=== PATIENT | male | born 1950 | race Caucasian/White ===

== ENCOUNTER 2018-04-24 09:12 | Inpatient (IN) | payer OTHER, MEDICARE ==
--- NOTE | 2018-04-20 12:02 | Diagnostic Imaging Report ---
EXAMINATION: CHEST 2 VIEWS INDICATION: \S\PRE-OP \[id number] \S\1145 COMPARISON: None FINDINGS: PA and lateral views TUBES and LINES: None. LUNGS: The lungs are hyperinflated. Minimal atelectasis in both lung bases. There is no evidence of pneumonia or pulmonary edema. PLEURA: No pleural effusion or pneumothorax. HEART AND MEDIASTINUM: The cardiomediastinal silhouette is unremarkable. BONES AND SOFT TISSUES: Minimal decreasing height of a lower thoracic vertebral body likely degenerative. Mild multilevel degenerative changes of the thoracic spine. Soft tissues are unremarkable. UPPER ABDOMEN: No free air under the diaphragm. IMPRESSION: No acute thoracic abnormality. Minimal atelectasis in both lung bases. Signed by: Dr. Khadijah Castro M.D. on 04/20/2018 11:59 AM
[2018-04-23 10:00] LABS: BASOPHILS # (AUTO) 0.1 (0.0-0.1); BASOPHILS % 0.8 % (0.0-1.0); EOSINOPHILS # (AUTO) 0.2 (0.0-0.4); EOSINOPHILS % 2.7 % (0.0-6.0); HEMATOCRIT 42.3 % (38.2-49.6); HEMOGLOBIN 14.6 g/dL (14.0-18.0); LYMPHOCYTES # (AUTO) 1.4 (1.0-3.2); LYMPHOCYTES % 22.1 % (18.0-39.1); MEAN CORPUSCULAR HEMOGLOBIN 31.6 pg (28-32); MEAN CORPUSCULAR HGB CONC 34.5 g/dL (31-35); MEAN CORPUSCULAR VOLUME 91.6 fL (81-99); MONOCYTES # (AUTO) 0.6 (0.2-0.8); MONOCYTES % 9.6 % (4.4-11.3); NEUTROPHILS % 64.3 % (38.7-80.0); PLATELET COUNT 174 x10e3/uL (140-360); RED BLOOD COUNT 4.62 x10e6/uL (4.3-5.7); RED CELL DISTRIBUTION WIDTH 12.3 % (11.7-14.4)
[2018-04-23 10:14] LABS: ANION GAP 12.5 mmol/L (8-16); BLOOD UREA NITROGEN 20 mg/dL (7-26); BUN/CREATININE RATIO 17 (6-25); CALCIUM 10.1 mg/dL (8.4-10.2); CARBON DIOXIDE 27 mmol/L (22-29); CHLORIDE 106 mmol/L (98-107); CREATININE, SERUM 1.19 mg/dL (0.72-1.25); EST GLOMERULAR FILTRATION RATE > 60 ML/MIN (60-); GLUCOSE 148 mg/dL (74-118); POTASSIUM 4.5 mmol/L (3.5-5.1); SODIUM 141 mmol/L (136-145)
[~2018-04-24] VITALS: Ht 160 cm; Wt 102.1 kg
[~2018-04-24 09:12] MED LIST: AMLODIPINE BESY10 MG PO; ASPIRIN81 M1 PO; CALCIUM MG ZINC PO; CARVEDILOL12.5 MG PO; CO Q-10400 MG PO; CRESTOR10 MG PO; DIPHENHYDRAMINE25 MG PO; DOXAZOSIN MESYLA2 MG PO; GLUCOSAMINE1000 MG PO; KRILL OIL500 MG PO; LISINOPRIL-HCT1 EACH; LOSARTAN-HCTZ1 EAC1 PO; MELOXICAM15 MG PO; NAPROXEN SODIU220 MG PO; POTASSIUM CHLO10 ME1 PO; VITAMIN D33000 UNIT PO
[2018-04-24] MEDS ORDERED: CEFAZOLIN SOD 2 GM/D5W 50ML 50 ML IV ONE (09:27)
[2018-04-24 09:52] LABS: CLARITY,URINE CLEAR (CLEAR); COLOR,URINE YELLOW (YELLOW); KETONES,URINE NEGATIVE (NEGATIVE); LEUKOCYTE ESTERASE ,URINE NEGATIVE (NEGATIVE); NITRITE,URINE NEGATIVE (NEGATIVE); PROTEIN,URINE DIPSTICK NEGATIVE (NEGATIVE)
[2018-04-24 09:53] LABS: BILIRUBIN,URINE NEGATIVE (NEGATIVE); URINE UROBILINOGEN 0.2 mg/dL (0.2 - 1)
[2018-04-24] MEDS ORDERED: BACITRACIN 50,000 UNIT VIAL ONE (11:27)
[2018-04-24] MEDS ORDERED: DEXAMETHASONE SOD PHOS INJ 4 MG/ML VIAL ONE (17:41)
[2018-04-24] MEDS ORDERED: VASOPRESSIN INJ 20 UNIT/ML VIAL ONE (17:41)
[2018-04-24] MEDS ORDERED: SEVOFLURANE INHAL SOLN 250 ML PEN BTL ONE (17:41)
[2018-04-24] MEDS ORDERED: PROPOFOL IV EMULSION 10 MG/ML 20 ML VIAL ONE (17:41)
[2018-04-24] MEDS ORDERED: ACETAMINOPHEN 1000 MG/100 ML IV ONE (17:41)
[2018-04-24] MEDS ORDERED: ONDANSETRON HCL INJ 2 MG/ML VIAL ONE (17:41)
[2018-04-24] MEDS ORDERED: LIDOCAINE HCL 2% LOCAL INJ 5 ML SDV VIAL INJ ONE (17:41)
[2018-04-24] MEDS ORDERED: EPHEDRINE SULFATE INJ 50 MG/10 ML SYR ONE (17:41)
[2018-04-24] MEDS ORDERED: PHENYLEPHRINE HCL 1% 10 MG/ML VIAL ONE (17:41)
[2018-04-24] MEDS ORDERED: KETAMINE HCL INJ 50 MG/ML 10 ML VIAL ONE (17:45)
[2018-04-24] MEDS ORDERED: FENTANYL CITRATE/PF 100MCG/2 ML INJ ONE (17:45)
[2018-04-24] MEDS ORDERED: MORPHINE SULFATE INJ 10 MG/ML ONE (17:45)
[2018-04-24] MEDS ORDERED: MIDAZOLAM HCL 2 MG/2 ML VIAL ONE (17:45)
[2018-04-24] MEDS ORDERED: NALOXONE HCL INJ 0.4 MG/ML AMP IV PRN (18:30)
[2018-04-24] MEDS ORDERED: HYDROMORPHONE 0.2MG/ML-SOD CHL 30ML PCA SYRINGE IV PRN (18:30)
[2018-04-24] MEDS ORDERED: ALBUTEROL SULF 0.083% NEB SOLN 3 ML NEB ONE (18:50)
[2018-04-24] MEDS ORDERED: LIDOCAINE 2%/ EPINEPHRINE 20ML MDV ONE (18:51)
[2018-04-24] MEDS ORDERED: ROPIVACAINE 0.5% 5 MG/ML 30 ML SDV ONE (18:51)
--- NOTE | 2018-04-24 19:09 | Operative Report ---
DATE OF PROCEDURE: April 24, 2018 PREOPERATIVE DIAGNOSIS: End-stage arthritis left knee. POSTOPERATIVE DIAGNOSIS: End-stage arthritis left knee. PROCEDURE PERFORMED: Patient underwent a left total knee arthroplasty with a Serge Flex knee system with a size F femoral component, a size 6 tibial component, a 17 mm tibial insert and a 41 mm patella button. MILLING MACHINE SET UP OPERATOR: None. ANESTHESIA: General endotracheal intubation anesthesia. INTRAVENOUS FLUIDS: As per the anesthesia record. OPERATIVE PROCEDURE IN DETAIL: Mr. Mcallister was taken to the operating room and placed in the supine position on the operating table. Following the induction of general anesthesia as well as endotracheal intubation, the patient's left lower extremity was examined under anesthesia. He was found to have a varus knee that was ligamentously stable. The patient's lower extremity was prepped and draped in standard surgical fashion. The case was begun by creating an incision centered over the knee joint along the long axis of the leg. This incision was carried through the skin only. Blunt dissection was used to deepen the incision to the level of the extensor mechanism. Full-thickness soft-tissue flaps were then elevated medially and laterally to expose the extensor mechanism. The quadriceps tendon was then incised along its medial border to the level of the tibial tubercle. The patella was everted laterally, and osteophytes were removed from the femur, tibia and patella. The patella was measured for later reaming. The anterior horns of the medial and lateral menisci were resected. The anterior-posterior cruciate ligaments were also resected at this time. The knee was placed in flexion, and the 5-in-1 cutting block was affixed to the femur. The femoral cuts were performed. The intercondylar notch-cutting block was then affixed to the femur, and the intercondylar notch cut was performed. The finishing block was then affixed to the femur, and the posterior chamfer cut was performed. The external tibial alignment guide was then affixed to the tibia and adjusted appropriately. The tibial cut was performed. The keel-cutting device was then affixed to the proximal tibia, and the keel cut was performed. Trial femoral and tibial components were placed within the knee joint. The soft tissues were balanced. A tibial insert was placed within the knee, and the knee was placed through a range of motion and found to be stable. The patella was then reamed, and a trial patellar button was placed in the undersurface of the patella. The patellofemoral joint was reduced and placed through motion and found to be stable. All trial components were removed. Cement was mixed on the back table. The bone was prepared for cementation. The femoral, tibial and patellar components were cemented into place. The knee was reduced and placed through motion again and found to be stable. The wound was copiously irrigated. The tourniquet was deflated, and hemostasis was obtained prior to closing the wound. The quadriceps mechanism was repaired with a nonabsorbable suture in a figure-of-8 fashion. The remaining soft tissues were closed in a multi-layer fashion. Sterile dressings were applied, and the patient was then awakened and taken to the postanesthesia care unit in stable condition. Job#: [id number] EV
[2018-04-24] MEDS ORDERED: MEPERIDINE HCL INJ 50 MG/ML INJ ONE (19:17)
[2018-04-24] MEDS ORDERED: HYDROMORPHONE 0.2MG/ML-SOD CHL 30ML PCA SYRINGE IV ONE (19:18)
--- NOTE | 2018-04-24 19:50 | Diagnostic Imaging Report ---
LEFT KNEE X-RAY - 2 VIEWS HISTORY: \S\post op \S\[id number] \S\1900 \S\n COMPARISON: None available. FINDINGS: Bones: Status post total knee arthroplasty. Hardware appears intact without loosening. Increased sclerosis of the patella. Osseous alignment is within normal limits. Joints: The joint spaces are well-maintained. Soft tissues: Air-fluid level within the suprapatellar and infrapatellar region, likely postoperative hematoma. Terese overlying the skin of the anterior knee. IMPRESSION: Left knee total arthroplasty. Hardware appears intact and in good alignment. Signed by: Dr. Khadijah Castro M.D. on 04/24/2018 7:46 PM
[2018-04-24 20:15] VITALS: BP 125/69
[2018-04-24] MEDS ORDERED: CEFAZOLIN SOD 1 GM/D5W 50ML 50 ML IV SCH (22:00)
[2018-04-24] MEDS: CEFAZOLIN SOD 1 GM VIAL IV SCH (22:13)
[2018-04-24] MEDS: SODIUM CHLORIDE 0.9% 1000ML 1,000 ML IV SCH (22:13)
[2018-04-24 23:28] VITALS: BP 125/69
[2018-04-24] MEDS: ACETAMINOPHEN 1000 MG/100 ML IV SCH (23:42)
[2018-04-25] VITALS (8 sets, daily range): BP systolic 124–165; BP diastolic 61–73
[2018-04-25] MEDS: ACETAMINOPHEN 1000 MG/100 ML IV SCH ×3 (05:28→17:42)
[2018-04-25] MEDS: CEFAZOLIN SOD 1 GM VIAL IV SCH ×2 (05:28→14:09)
[2018-04-25 05:31] LABS: HEMATOCRIT 35.2 % (38.2-49.6); HEMOGLOBIN 12.3 g/dL (14.0-18.0)
[2018-04-25] MEDS ORDERED: ONDANSETRON HCL INJ 2 MG/ML VIAL IV PRN (08:30)
[2018-04-25] MEDS: SODIUM CHLORIDE 0.9% 1000ML 1,000 ML IV SCH ×2 (10:22→14:22)
[2018-04-25] MEDS ORDERED: KETOROLAC TROMETHAMINE 30 MG/ML VIAL IV PRN (16:45)
[2018-04-25] MEDS: RIVAROXABAN 10 MG TABLET PO SCH (16:57)
[2018-04-25] MEDS: POTASSIUM CHLORIDE 10 MEQ TABCR PO SCH (16:59)
[2018-04-25] MEDS: CARVEDILOL 12.5 MG TAB PO SCH (16:59)
[2018-04-25] MEDS ORDERED: SIMVASTATIN 40 MG TAB PO SCH (21:00)
[2018-04-25] MEDS ORDERED: DOXAZOSIN MESYLATE 2 MG TAB PO SCH (21:00)
[2018-04-25] MEDS ORDERED: SIMVASTATIN 20 MG TAB PO SCH (21:00)
[2018-04-25] MEDS ORDERED: AMLODIPINE BESYLATE 10 MG TAB PO SCH (21:00)
[2018-04-26] VITALS: BP 139/66
[2018-04-26 04:00] VITALS: BP 134/60
[2018-04-26 05:41] LABS: HEMATOCRIT 29.8 % (38.2-49.6); HEMOGLOBIN 10.4 g/dL (14.0-18.0)
[2018-04-26 07:35] VITALS: BP 133/63
[2018-04-26 08:28] VITALS: BP 133/63
[2018-04-26] MEDS ORDERED: LOSARTAN POTASSIUM 100 MG TAB PO SCH (09:00)
[2018-04-26] MEDS ORDERED: HYDROCHLOROTHIAZIDE 25 MG TAB PO SCH (09:00)
[2018-04-26] MEDS ORDERED: NON-FORMULARY MEDICATION (Losartan/Hydrochlorothiazide (Losartan-Hctz 100-25 Mg Tab) 1 TAB PO SCH (09:00)
[2018-04-26] MEDS: CARVEDILOL 12.5 MG TAB PO SCH ×2 (09:34→17:19)
[2018-04-26] MEDS: POTASSIUM CHLORIDE 10 MEQ TABCR PO SCH ×2 (09:34→17:19)
[2018-04-26 11:42] VITALS: BP 132/61
[2018-04-26] MEDS: HYDROCODONE/APAP 5MG-325MG TAB PO PRN ×2 (13:15→17:15)
[2018-04-26 15:57] VITALS: BP 160/73
[2018-04-26] MEDS: RIVAROXABAN 10 MG TABLET PO SCH (17:19)
[2018-04-26] MEDS ORDERED: NORCO 5-325 TA1 EACH PO (18:29)
--- NOTE | 2018-05-03 17:53 | Discharge Summary ---
Patient had his procedure placed on the March,. PREOPERATIVE DIAGNOSIS: End-stage arthritis left knee. DISCHARGE DIAGNOSIS: End-stage arthritis left knee. OPERATION/PROCEDURES PERFORMED: The patient underwent a left total knee arthroplasty on the March,. Consultations were with the physical therapy department. BRIEF DESCRIPTION OF THE PATIENT'S HOSPITAL STAY: Mr. Mcallister was admitted to the hospital on the March,, and underwent an uncomplicated left total knee arthroplasty. He was returned to the floor immediately following this surgical procedure. His initial postoperative pain was controlled by IV pain medications. He was provided postoperative antibiotics following his surgery. He was mobilized with physical therapy, weightbearing as tolerated on this left lower extremity. He tolerated his diet immediately following his surgery. He did have difficulty, however, with pain control requiring extension of his hospital stay to allow for further pain management. On his second postoperative day his pain was under much better control and he was easily converted to oral analgesics. At this time he was deemed a candidate for discharge home with home health services. He had ambulated sufficiently in the hospital as well as been taught how to manage stairs prior to his discharge. At the time of his discharge he was in stable condition. The patient's discharge instructions are to be discharged with weightbearing as tolerated on the left lower extremity. He will continue his normal diet as well as all of his previous medications. He was provided prescriptions for discharge durable medical equipment for home use as well as home health services. He was also provided prescriptions for pain medicines as well as DVT prophylaxis. He would contact the office with fevers greater than 101.5 that were sustained, excessive drainage from his wounds, or intractable pain. Job#: [id number] EV
== END 2018-04-26 18:53 | disposition home health service (06) | DRG 470 ==
LOC: OR 09:12 → PACU V 18:26 → OBSVTOIN 18:26 → OR 21:37 → MED/SURG 21:37 → OBSVTOIN 04-26 15:53 → INTOOBSV 04-26 15:53
PROVIDERS: ADMIT Specialist; ATTEND Specialist
PROC: 0SRD0J9 Replacement of Left Knee Joint with Synthetic Substitute, Cemented, Open Approach (ICD-10-PCS; principal; 2018-04-24 15:21)
DX: M17.0 Bilateral primary osteoarthritis of knee (principal); I10 Essential (primary) hypertension; E78.5 Hyperlipidemia, unspecified
CPT/HCPCS: 36415; 71046; 80048; 81003; 82948; 85014; 85018; 85025; 86850; 86900; 86920; 97139; C1713; C1776; G0378; J0690; J1100; J1885; J2001; J2175; J2250; J2270; J2370; J2405; J2795; J7030

== ENCOUNTER 2018-05-25 14:55 | Outpatient (RCR) | payer OTHER, MEDICARE ==
[~2018-05-25 14:55] MED LIST changes: +NORCO 5-325 TA1 EACH PO
== END 2018-05-27 ==
LOC: PT 14:55
PROVIDERS: ATTEND Specialist
DX: Z96.652 Presence of left artificial knee joint (principal); Z47.1 Aftercare following joint replacement surgery

== ENCOUNTER → 2018-06-27 | Outpatient (RCR) | payer MEDICARE, OTHER ==
[~2018-06-27] MED LIST changes: +CO Q-10400 MG
== END ==
LOC: PT 05-28 14:50
PROVIDERS: ATTEND Specialist
DX: Z96.652 Presence of left artificial knee joint (principal); Z47.1 Aftercare following joint replacement surgery; M62.81 Muscle weakness (generalized)

== ENCOUNTER 2018-07-13 15:00 | Outpatient (RCR) | payer MEDICARE, OTHER ==
[~2018-07-13 15:00] MED LIST changes: -CO Q-10400 MG
[2018-07-30] MEDS ORDERED: CO Q-10400 MG (11:43)
== END 2018-07-27 ==
LOC: PT 15:00
PROVIDERS: ATTEND Specialist
DX: Z96.652 Presence of left artificial knee joint (principal); Z47.1 Aftercare following joint replacement surgery; M62.81 Muscle weakness (generalized)

== ENCOUNTER 2018-07-31 10:01 | Inpatient (IN) | payer OTHER, MEDICARE ==
[2018-07-30 12:09] LABS: BILIRUBIN,URINE NEGATIVE (NEGATIVE); CLARITY,URINE CLEAR (CLEAR); COLOR,URINE YELLOW (YELLOW); KETONES,URINE NEGATIVE (NEGATIVE); LEUKOCYTE ESTERASE ,URINE NEGATIVE (NEGATIVE); NITRITE,URINE NEGATIVE (NEGATIVE); PROTEIN,URINE DIPSTICK NEGATIVE (NEGATIVE); URINE UROBILINOGEN 0.2 mg/dL (0.2 - 1)
[2018-07-30 12:22] LABS: BASOPHILS % 0.5 % (0.0-1.0); EOSINOPHILS # (AUTO) 0.2 (0.0-0.4); EOSINOPHILS % 2.6 % (0.0-6.0); HEMATOCRIT 45.1 % (38.2-49.6); HEMOGLOBIN 15.2 g/dL (14.0-18.0); LYMPHOCYTES # (AUTO) 1.5 (1.0-3.2); LYMPHOCYTES % 17.8 % (18.0-39.1); MEAN CORPUSCULAR HEMOGLOBIN 29.9 pg (28-32); MEAN CORPUSCULAR HGB CONC 33.7 g/dL (31-35); MEAN CORPUSCULAR VOLUME 88.6 fL (81-99); MONOCYTES # (AUTO) 0.7 (0.2-0.8); MONOCYTES % 8.8 % (4.4-11.3); NEUTROPHILS # (AUTO) 5.7 (2.1-6.9); NEUTROPHILS % 69.8 % (38.7-80.0); PLATELET COUNT 191 x10e3/uL (140-360); RED BLOOD COUNT 5.09 x10e6/uL (4.3-5.7); RED CELL DISTRIBUTION WIDTH 12.7 % (11.7-14.4)
[2018-07-30 12:51] LABS: ANION GAP 12.8 mmol/L (8-16); BLOOD UREA NITROGEN 16 mg/dL (7-26); BUN/CREATININE RATIO 14 (6-25); CALCIUM 10.2 mg/dL (8.4-10.2); CARBON DIOXIDE 28 mmol/L (22-29); CHLORIDE 103 mmol/L (98-107); CREATININE, SERUM 1.11 mg/dL (0.72-1.25); EST GLOMERULAR FILTRATION RATE > 60 ML/MIN (60-); GLUCOSE 114 mg/dL (74-118); POTASSIUM 3.8 mmol/L (3.5-5.1); SODIUM 140 mmol/L (136-145)
--- NOTE | 2018-07-30 14:06 | Diagnostic Imaging Report ---
EXAMINATION: PA and lateral views of the chest. COMPARISON: None CLINICAL HISTORY: Preoperative study for knee surgery DISCUSSION: Lines/tubes: None. Lungs: The lungs are well inflated and clear. There is no evidence of pneumonia or pulmonary edema. Pleura: There is no pleural effusion or pneumothorax. Heart and mediastinum: The cardiomediastinal silhouette is normal. Bones and soft tissues: No acute bony abnormalities. Age-indeterminate mild anterior compression deformity of a lower thoracic vertebral body, likely T12. Correlate for point tenderness. IMPRESSION: No acute cardiopulmonary abnormalities. Signed by: Dr. Chaz Trent M.D. on 07/30/2018 2:03 PM
[~2018-07-31] VITALS: Ht 160 cm; Wt 102.1 kg
[~2018-07-31 10:01] MED LIST changes: +CO Q-10400 MG
--- OUTSIDE RECORDS SUMMARY | 2018-07-31 10:03 | XMS REPORT ---
Author Author [facility] Address Unknown Phone Unavailable Care Team Providers Care Spot Billing Clerk Name Role Phone RYAN VARGAS Unavailable Unavailable Problems This patient has no known problems. Allergies, Adverse Reactions, Alerts This patient has no known allergies or adverse reactions. Medications This patient has no known medications. Results Test Description Test Time Test Comments Text Results Atomic Results Result Comments CHEST 2 VIEWS 2018-07-30 13:59:00 [place] [address] Patient Name: VEE LÓPEZ MR #: [id number] : 1950 Age/Sex: 67/M Req #: [id number] Adm Physician: Ordered by: RYAN VARGAS MD Report #: [id number] Location: OR Room/Bed: Procedure: [id number] DX/CHEST 2 VIEWS Exam Date: 07/30/18 Exam Time: 1208 REPORT STATUS: Signed EXAMINATION: PA and lateral views of the chest. COMPAR KASSY: None CLINICAL HISTORY: Preoperative study for knee surgery DISCUSSION: Lines/tubes: None. Lungs: The lungs are well inflated and clear. There is no evidence of pneumonia or pulmonary edema. Pleura: There is no pleural effusion or pneumothorax. Heart and mediastinum: The cardiomediastinal silhouette is normal. Bones and soft tissues: No acute bony abnormalities. Age-indeterminate mild anterior compression deformity of a lower thoracic vertebral body, likely T12. Correlate for point tenderness. IMPRESSION: No acute cardiopulmonary abnormalities. Signed by: Dr. Linwood Bui M.D. on 07/30/2018 2:03 PM Dictated By: LINWOOD BUI MD 02 Transcribed By: GERALD on 07/30/181402 COPY TO: RYAN VARGAS MD KNEE LEFT 1-2 VIEWS 2018-04-24 19:35:00 [place] [address] Patient Name: VEE LÓPEZ MR #: [id number] : 1950 Age/Sex: 67/M Req #: [id number] Adm Physician: Ordered by: RYAN VARGAS MD Report #: [id number] Location: OR Room/Bed: Procedure: [id number] DX/KNEE LEFT 1-2 VIEWS Exam Date: 04/24/18 Exam Time: 1900 REPORT STATUS: Signed LEFT KNEE X-RAY - 2 VIEWS HISTORY: COMPARISON: None available. FINDINGS: Bones: Status post total knee arthroplasty. Hardware appears intact without loosening. Increased sclerosis of the patella. Osseous alignment is within normal limits. Joints: The joint spaces are well-maintained. Soft tissues: Air-fluid level within the suprapatellar and infrapatellar region, likely postoperative hematoma. Terese overlying the skin of the anterior knee. IMPRESSION: Left knee total arthroplasty. Hardware appears intact and in good alignment. Signed by: Dr. Socorro Parker M.D. on 04/24/2018 7:46 PM Dictated By: SOCORRO PARKER MD 45 Transcribed By: GERALD on 04/24/181945 COPY TO: RYAN VARGAS MD CHEST 2 VIEWS 2018-04-20 11:58:00 [place] [address] Patient Name: VEE LÓPEZ MR #: [id number] : 1950 Age/Sex: 67/M Req #: [id number] Adm Physician: Ordered by: RYAN VARGAS MD Report #: [id number] Location: OR Room/Bed: Procedure: [id number] DX/CHEST 2 VIEWS Exam Date: 04/20/18 Exam Time: 1145 REPORT STATUS: Signed EXAMINATION: CHEST 2 VIEWS INDICATION: COMPARISON: None FINDINGS: PA and lateral views TUBES and LINES: None. LUNGS: The lungs are hyperinflated. Minimal atelectasis in both lung bases. There is no evidence of pneumonia or pulmonary edema. PLEURA: No pleural effusion or pneumothorax. HEART AND MEDIASTINUM: The cardiomediastinal silhouette is unremarkable. BONES AND SOFT TISSUES: Minimal decreasing height of a lower thoracic vertebral body likely degenerative. Mild multilevel degenerative changes of the thoracic spine. Soft tissues are unremarkable. UPPER ABDOMEN: No free air under the diaphragm. IMPRESSION: No acute thoracic abnormality. Minimal atelectasis in both lung bases. Signed by: Dr. Socorro Parker M.D. on 04/20/2018 11:59 AM Dictated By: SOCORRO PARKER MD 115 Transcribed By: GERALD on 04/20/181158 COPY TO: RYAN VARGAS MD
[2018-07-31] MEDS ORDERED: CLINDAMYCIN PHOS 900MG/ 50ML 50 ML IV ONE (11:03)
[2018-07-31] MEDS ORDERED: BACITRACIN 50,000 UNIT VIAL ONE (11:56)
[2018-07-31] MEDS: SODIUM CHLORIDE 0.9% 1000ML 1,000 ML IV SCH (15:47)
[2018-07-31] MEDS ORDERED: DIPHENHYDRAMINE HCL INJ 50 MG/ML VIAL IM/IV PRN (16:00)
[2018-07-31] MEDS ORDERED: NALOXONE HCL INJ 0.4 MG/ML AMP IV PRN (16:00)
[2018-07-31] MEDS ORDERED: HYDROMORPHONE 2MG/ML 2 MG/ML ML ONE (16:00)
[2018-07-31] MEDS ORDERED: HYDROMORPHONE 0.2MG/ML-SOD CHL 30ML PCA SYRINGE IV ONE (16:49)
[2018-07-31] MEDS: HYDROMORPHONE 0.2MG/ML-SOD CHL 30ML PCA SYRINGE IV PRN ×2 (16:50→19:36)
[2018-07-31] MEDS ORDERED: FENTANYL CITRATE/PF 100MCG/2 ML INJ ONE ×2 (17:00→17:30)
[2018-07-31] MEDS ORDERED: MIDAZOLAM HCL 2 MG/2 ML VIAL ONE (17:30)
[2018-07-31] MEDS ORDERED: KETAMINE HCL INJ 50 MG/ML 10 ML VIAL ONE (17:30)
[2018-07-31] MEDS ORDERED: PROPOFOL IV EMULSION 10 MG/ML 20 ML VIAL ONE (17:45)
[2018-07-31] MEDS ORDERED: SEVOFLURANE INHAL SOLN 250 ML PEN BTL ONE (17:45)
[2018-07-31] MEDS ORDERED: ONDANSETRON HCL INJ 2 MG/ML VIAL ONE (17:45)
[2018-07-31] MEDS ORDERED: ACETAMINOPHEN 1000 MG/100 ML IV ONE (17:45)
[2018-07-31] MEDS ORDERED: DEXAMETHASONE SOD PHOS INJ 4 MG/ML VIAL ONE (17:45)
[2018-07-31] MEDS ORDERED: EPHEDRINE SULFATE INJ 50 MG/10 ML SYR ONE (17:45)
[2018-07-31 18:00] VITALS: BP 139/72
--- NOTE | 2018-07-31 18:05 | Diagnostic Imaging Report ---
Right knee radiographs - two views Comparison: None Findings: Status post right total knee arthroplasty and patellar resurfacing in anatomic alignment. Overlying subcutaneous emphysema, and surgical skin maday are present. Hardware appears intact. No evidence of acute fracture. IMPRESSION: Status post right knee replacement in anatomic position. Signed by: Dr. Bg Gary MD on 07/31/2018 6:02 PM
[2018-07-31] MEDS: ACETAMINOPHEN 1000 MG/100 ML IV SCH ×2 (18:13→19:36)
[2018-07-31] MEDS: VANCOMYCIN 1GM/NS 250 ML 250 ML IV SCH (18:14)
[2018-07-31] MEDS: ONDANSETRON HCL INJ 2 MG/ML VIAL IV PRN (18:14)
[2018-07-31 18:15] VITALS: BP 129/79
[2018-07-31] MEDS ORDERED: BUPIVACAINE 0.25% 30ML SDV INJ ONE (19:13)
[2018-07-31] MEDS ORDERED: EPINEPHRINE HCL INJ 1 MG/ML AMP ONE (19:13)
[2018-07-31 20:00] VITALS: BP 118/56
[2018-08-01] VITALS (7 sets, daily range): BP systolic 118–143; BP diastolic 56–74
[2018-08-01] MEDS: SODIUM CHLORIDE 0.9% 1000ML 1,000 ML IV SCH (00:20)
[2018-08-01] MEDS: ACETAMINOPHEN 1000 MG/100 ML IV SCH ×2 (05:28→12:05)
[2018-08-01 05:55] LABS: HEMATOCRIT 31.8 % (38.2-49.6); HEMOGLOBIN 10.9 g/dL (14.0-18.0)
[2018-08-01] MEDS: VANCOMYCIN 1GM/NS 250 ML 250 ML IV SCH (06:09)
[2018-08-01] MEDS: ONDANSETRON HCL INJ 2 MG/ML VIAL IV PRN (08:01)
[2018-08-01] MEDS: HYDROCODONE/APAP 7.5MG-325MG 1 EA TAB PO PRN ×2 (08:01→13:44)
[2018-08-01] MEDS ORDERED: HYDROCHLOROTHIAZIDE 25 MG TAB PO SCH (09:09)
[2018-08-01] MEDS ORDERED: LOSARTAN POTASSIUM 100 MG TAB PO SCH (09:09)
[2018-08-01] MEDS ORDERED: CARVEDILOL 12.5 MG TAB PO SCH (17:00)
[2018-08-01] MEDS ORDERED: RIVAROXABAN 10 MG TABLET PO SCH (17:00)
[2018-08-01] MEDS ORDERED: AMLODIPINE BESYLATE 10 MG TAB PO SCH (21:00)
[2018-08-01] MEDS ORDERED: DOXAZOSIN MESYLATE 2 MG TAB PO SCH (21:00)
[2018-08-01] MEDS ORDERED: SIMVASTATIN 20 MG TAB PO SCH (21:00)
[2018-08-01] MEDS ORDERED: SIMVASTATIN 40 MG TAB PO SCH (21:00)
[2018-08-02] MEDS ORDERED: NON-FORMULARY MEDICATION (Losartan/Hydrochlorothiazide (Losartan-Hctz 100-25 Mg Tab) 1 TAB PO SCH (09:00)
--- NOTE | 2018-08-02 12:44 | Operative Report ---
DATE OF PROCEDURE: July 31, 2018 PREOPERATIVE DIAGNOSIS: End-stage arthritis, right knee. POSTOPERATIVE DIAGNOSIS: End-stage arthritis, right knee. PROCEDURE PERFORMED: Right total knee arthroplasty with a Serge size-F femoral component, a size-5 tibial component, a 20-mm tibial insert and a 35-mm patellar button. ORGAN BUILDER: Beatris Cartagena, certified low vision therapist. ANESTHESIA: A regional block plus general endotracheal intubation anesthesia. IV FLUIDS: Per the anesthesia record. DESCRIPTION OF OPERATIVE PROCEDURE: Mr. Mcallister was taken to the operating room and placed in the supine position on the operating room table. Following induction of general anesthesia as well as endotracheal intubation, the patient's right lower extremity was examined under anesthesia. He was found to have varus alignment to his lower extremity. He had a mild extension lag on examination but excellent flexion. The patient's lower extremity was prepped and draped in the standard surgical fashion. The case was begun by creating an incision along the longitudinal axis of the lower extremity. This incision was carried through the skin only. The dissection was deepened to the level of the extensor mechanism. A medial parapatellar approach through the extensor mechanism was achieved at this time. The patella was everted. Osteophytes were excised from the patella, the femur and the tibia. The anterior horns of the medial and lateral menisci were excised as well as the fat pad. The patella was measured for later reaming. The knee was placed in flexion. The anterior and posterior cruciate ligaments were sacrificed at this time. The 5-in-1 cutting block was then affixed to the femur, and the femoral cuts were performed. The intercondylar notch cutting block was affixed to the femur, and the intercondylar notch cut was performed. The finishing block was affixed to the femur, and the posterior chamfer cut was performed. Attention was then turned to the tibia. The external tibial alignment guide was affixed to the tibia and adjusted appropriately. The proximal tibial cut was performed. The keel cutting device was affixed to the tibia and the keel cut was performed. Trial femoral and tibial components were inserted. The soft tissues were balanced. Trial inserts were placed in the tibial tray, and the knee was reduced and placed in motion and found to be stable. The patella was then reamed, and a patellar implant was placed on the undersurface of the patella. The patellofemoral joint was reduced, and the knee was placed in motion. The patella was found to track appropriately. All trial components were removed. The knee was copiously irrigated and prepared for cementation. Cement was mixed on the back table. The femoral, tibial and patellar components were then cemented into place. The tourniquet was deflated, and hemostasis was obtained. The extensor mechanism was repaired in a figure-of-8 fashion. Remaining soft tissues were closed in a multilayer fashion. Sterile dressings were applied. The patient was awakened and taken to the postanesthesia care unit in stable condition. Beatris Cartagena acted as assistant manager trainee for this case and was necessary for both prepping and draping the patient as well as the retraction of soft tissue and the closure of the wounds that allowed this case to be successful. Job#: [id number]
== END 2018-08-01 15:09 | disposition home health service (06) | DRG 470 ==
LOC: OR 10:01 → INTOOBSV 15:52 → PACU V 15:52 → OBSVTOIN 15:52 → MED/SURG 17:30
PROVIDERS: ADMIT Specialist; ATTEND Specialist
PROC: 0SRC0J9 Replacement of Right Knee Joint with Synthetic Substitute, Cemented, Open Approach (ICD-10-PCS; principal; 2018-07-31 12:30)
DX: M17.11 Unilateral primary osteoarthritis, right knee (principal); Z96.652 Presence of left artificial knee joint; I10 Essential (primary) hypertension; Z82.49 Family history of ischemic heart disease and other diseases of the circulatory system; Z80.9 Family history of malignant neoplasm, unspecified; E66.01 Morbid (severe) obesity due to excess calories; Z68.39 Body mass index [BMI] 39.0-39.9, adult; Z91.010 Allergy to peanuts; Z88.0 Allergy status to penicillin; Z91.018 Allergy to other foods; Z01.812 Encounter for preprocedural laboratory examination
CPT/HCPCS: 36415; 71046; 80048; 81003; 85014; 85018; 85025; 86850; 86900; 86920; 93005; C1713; J0171; J1100; J2250; J2405; J3370; J7030

== ENCOUNTER → 2018-08-27 | Outpatient (RCR) | payer OTHER, MEDICARE | LOC: PT 08-22 14:05 | PROVIDERS: ATTEND Specialist | DX: Z96.651 Presence of right artificial knee joint (principal); Z47.1 Aftercare following joint replacement surgery; M62.81 Muscle weakness (generalized) ==

== ENCOUNTER 2018-09-26 13:53 | Outpatient (RCR) | payer OTHER, MEDICARE | END 2018-09-27 | LOC: PT 13:53 | PROVIDERS: ATTEND Specialist | DX: Z96.651 Presence of right artificial knee joint (principal); Z47.1 Aftercare following joint replacement surgery; M62.81 Muscle weakness (generalized); R26.2 Difficulty in walking, not elsewhere classified; M25.561 Pain in right knee; M25.661 Stiffness of right knee, not elsewhere classified; M25.571 Pain in right ankle and joints of right foot ==

== ENCOUNTER 2018-10-24 13:50 | Outpatient (RCR) | payer OTHER, MEDICARE | END 2018-10-25 | LOC: PT 13:50 | PROVIDERS: ATTEND Specialist | DX: Z96.651 Presence of right artificial knee joint (principal); Z47.1 Aftercare following joint replacement surgery; M25.561 Pain in right knee; M25.571 Pain in right ankle and joints of right foot; R26.2 Difficulty in walking, not elsewhere classified | CPT/HCPCS: 97139 ==

== ENCOUNTER → 2020-02-13 | Outpatient (CLI) | payer OTHER, MEDICARE ==
[~2020-02-13] MED LIST changes: +IOPAMIDOL 370 MG/ML 200 ML INFUS..BTL INJ ONE; +SODIUM CHLORIDE 0.9% 100 ML ONE
[2020-02-13 13:31] LABS: CREATININE, SERUM 1.2 mg/dL (0.72-1.25)
--- NOTE | 2020-02-13 14:56 | Diagnostic Imaging Report ---
CTA NECK HISTORY: Carotid stenosis COMPARISON: None. TECHNIQUE: CTA of the neck was performed with intravenous iodine based contrast. Coronal, sagittal, 3-D, and oblique maximum intensity projection reformations were created. One or more of the following dose reduction techniques were used: Automated exposure control, adjustment of the mA and/or kV according to patient size, and/or utilization of iterative reconstruction technique. DISCUSSION: If present, any cervical carotid stenosis will be measured as a percentage relative to the marshall artery distal to the stenosis (NASCET). Right Carotid: Moderate calcified plaque at the right carotid bulb causes less than 50% focal stenosis in the proximal right internal carotid artery. The cervical right internal carotid artery has a retropharyngeal course. Left Carotid: Moderate calcified plaque at the left carotid bulb causes up to 50% focal stenosis in the proximal left internal carotid artery. Additional calcified plaque in the proximal left internal carotid artery along with vessel kinking causes another focal area of 50% focal stenosis. The left cervical internal carotid artery has a slight retropharyngeal course. Right vertebral artery: Mild calcified plaque in the right V1 and V3 segments does not cause significant stenosis. Left vertebral artery: Mild calcified plaque at the left vertebral artery ostium does not cause significant stenosis. The intracranial arterial vasculature is partially imaged. Mild calcified plaque in the right vertebral artery V4 segment does not cause significant stenosis. Calcified plaque in the left vertebral artery proximal V4 segment causes severe stenosis. There is additional moderate focal stenosis in the distal left V4 segment. Mild bilateral carotid siphon calcified plaque does not cause significant stenosis. Additional findings: Mild to moderate scattered bilateral paranasal sinus mucosal thickening is present. The palatine tonsils are prominent. The oropharynx and hypopharynx are partially effaced. There is mild mosaic attenuation in the upper lungs. Mildly prominent main pulmonary artery may suggest pulmonary hypertension. Coronary artery calcifications are present. There are mild to moderate degenerative changes throughout the spine. IMPRESSION: 1. Two adjacent areas of approximately 50% focal stenoses in the proximal cervical left internal carotid artery due to calcified plaque and vessel kinking. 2. Moderate right carotid bulb and minimal bilateral cervical vertebral artery calcified plaque without significant stenosis. 3. No other cervical CTA abnormalities. 4. Moderate to severe focal stenoses in the left vertebral artery V4 segment due to calcified plaque. Signed by: Dr. Isaiah Marley M.D. on 02/13/2020 2:52 PM
== END ==
LOC: CT 12:33
PROVIDERS: ATTEND Internal Medicine
DX: I65.23 Occlusion and stenosis of bilateral carotid arteries (principal)
CPT/HCPCS: 36415; 70498; 82565; 84520; J7050; Q9967

== ENCOUNTER 2020-04-21 08:08 | Inpatient (IN) | payer OTHER, MEDICARE ==
[2020-04-16 09:19] LABS: BASOPHILS # (AUTO) 0.1 (0.0-0.1); BASOPHILS % 0.6 % (0.0-1.0); EOSINOPHILS # (AUTO) 0.2 (0.0-0.4); EOSINOPHILS % 1.5 % (0.0-6.0); HEMATOCRIT 38.4 % (38.2-49.6); HEMOGLOBIN 12.3 g/dL (14.0-18.0); LYMPHOCYTES # (AUTO) 1.3 (1.0-3.2); MEAN CORPUSCULAR HEMOGLOBIN 29.6 pg (28-32); MEAN CORPUSCULAR VOLUME 92.5 fL (81-99); MONOCYTES # (AUTO) 1.1 (0.2-0.8); MONOCYTES % 9.3 % (4.4-11.3); NEUTROPHILS # (AUTO) 8.8 (2.1-6.9); NEUTROPHILS % 74.1 % (38.7-80.0); PLATELET COUNT 281 x10e3/uL (140-360); RED BLOOD COUNT 4.15 x10e6/uL (4.3-5.7); RED CELL DISTRIBUTION WIDTH 13.3 % (11.7-14.4)
[2020-04-16 09:49] LABS: ANION GAP 16.7 mmol/L (8-16); CALCIUM 9.6 mg/dL (8.4-10.2); CREATININE, SERUM 1.42 mg/dL (0.72-1.25); POTASSIUM 3.7 mmol/L (3.5-5.1)
--- NOTE | 2020-04-16 10:38 | Diagnostic Imaging Report ---
Exam: CHEST 2 VIEWS Date: 04/16/2020 10:30 AM INDICATION: ^PRE-OP Comparison: 07/30/2018 FINDINGS: Lines/Tubes:None Lungs:The lungs are well inflated. No focal consolidation or pulmonary edema. Pleura:No pleural effusion. No pneumothorax. Heart/Mediastinum:The cardiomediastinal silhouette is normal in size and contour. Bones/Soft Tissues: No acute osseous abnormality. Mild multilevel degenerative changes of the thoracic spine are noted. Upper abdomen: Unremarkable. IMPRESSION: Negative for acute intrathoracic process. Signed by: Markus Akers MD on 04/16/2020 10:35 AM
[~2020-04-21] VITALS: Ht 160 cm; Wt 102.1 kg
[~2020-04-21 08:08] MED LIST changes: +ASPIRIN81 MG PO; +DOXYCYCLINE HY100 MG PO; -IOPAMIDOL 370 MG/ML 200 ML INFUS..BTL INJ ONE; +ROPIVACAINE 246.25 MG, EPINEPHRINE HCL 1:1000 1ML 0.5 MG, CLONIDINE HCL 0.08 MG, KETORO... INJ ONE; -SODIUM CHLORIDE 0.9% 100 ML ONE; +TOBRAMYCIN 1.2GM BULK BOTTLE ONE; +VANCOMYCIN HCL 1 GM VIAL ONE
[2020-04-21] MEDS ORDERED: DEXAMETHASONE SOD PHOS 10 MG/1 ML VIAL ONE (08:49)
[2020-04-21] MEDS ORDERED: GABAPENTIN 300 MG CAP ONE (08:49)
[2020-04-21] MEDS ORDERED: CELECOXIB 200 MG CAP ONE (08:49)
[2020-04-21] MEDS ORDERED: VANCOMYCIN 1GM/NS 250 ML 250 ML ONE (08:50)
[2020-04-21] MEDS ORDERED: SODIUM CHLORIDE 0.9% 500ML 500 ML ONE (09:47)
[2020-04-21] MEDS ORDERED: VANCOMYCIN HCL 500 MG ONE (09:47)
[2020-04-21] MEDS ORDERED: TRANEXAMIC ACID 1,000 MG/10 ML ML ONE (09:47)
[2020-04-21] MEDS ORDERED: HYDROCODONE/APAP 7.5MG-325MG 1 EA TAB PO PRN (12:45)
[2020-04-21] MEDS ORDERED: ACETAMINOPHEN 650 MG SUPP PR PRN (12:45)
[2020-04-21] MEDS: VANCOMYCIN 1GM/NS 250 ML 250 ML IV SCH (12:45)
[2020-04-21] MEDS ORDERED: HYDROCODONE/APAP 5MG-325MG TAB PO PRN (12:45)
[2020-04-21] MEDS ORDERED: ONDANSETRON HCL INJ 2MG/ML 2ML 2 MG/ML VIAL IV PRN (12:45)
[2020-04-21] MEDS ORDERED: DIPHENHYDRAMINE HCL INJ 50 MG/ML VIAL IV PRN (12:45)
[2020-04-21] MEDS ORDERED: SODIUM CHLORIDE 0.9% 1000ML 1,000 ML IV SCH (12:45)
[2020-04-21] MEDS ORDERED: DOCUSATE SODIUM 100 MG CAP PO PRN (12:45)
[2020-04-21] MEDS ORDERED: HYDROMORPHONE 1MG/1ML INJ ONE ×2 (13:20→13:45)
--- NOTE | 2020-04-21 13:38 | Diagnostic Imaging Report ---
EXAMINATION: KNEE RIGHT 1-2 VIEWS INDICATION: Postoperative COMPARISON: None FINDINGS: 3 views of the right knee demonstrate immediate postoperative findings of expectation of previously seen right total knee arthroplasty hardware with placement of antibiotic spacer. No unexpected fracture. Osteochondral loose bodies along the medial knee joint. Postoperative soft tissue emphysema. Surgical skin maday in place. IMPRESSION: Anatomic alignment status post expectation of right total knee arthroplasty hardware and placement of antibiotic spacer. Signed by: Mio Mcgraw MD on 04/21/2020 1:35 PM
--- OUTSIDE RECORDS SUMMARY | 2020-04-21 14:10 | XMS REPORT | Continuity of Care Document ---
Author Author [facility] t Organization [facility] Address [address] [place] [address] Phone Unavailable Care Team Providers Care Probation Agent Name Role Phone GIANA GLASS DO PCP LINWOOD COPPOLA Attphys Unavailable Angel EDWARDS Attphys Unavailable RYAN VARGAS Attphys Unavailable Antione CHADWICK Admphys Unavailable RYAN VARGAS Admsheila Unavailable Payers Payer Name Policy Type Policy Number Effective Date Expiration Date Rene Mendoza [facility] [id number] 2018 00:00:00 [facility] Medicare A Only [id number] 2018 00:00:00 2019 00:00:00 [facility] Medicare A & B [id number] 2017 00:00:00 [facility] Problems This patient has no known problems. Allergies, Adverse Reactions, Alerts Allergy Name Allergy Type Status Severity Reaction(s) Onset Date Inacti ve Date Treating Clinician Comments Source Penicillin Allergy to Substance Active swelling 2018-07-31 00:00:0 0 [facility] Peanuts Allergy to Substance Active swelling 2018-07-31 00:00:00 [facility] Wheat Allergy to Substance Active swelling 2018-07-31 00:00:00 [facility] Medications Ordered Medication Name Filled Medication Name Start Date Stop Da te Current Medication? Ordering Clinician Indication Dosage Frequency Signature (SIG) Comments Components Source Amlodipine Besylate 10 Mg Tablet Amlodipine Besylate 10 Mg Tablet Yes 10 Bedtime [facility] Calcium Mg Zinc Calcium Mg Zinc Yes 1 Daily [facility] Carvedilol 12.5 Mg Tablet Carvedilol 12.5 Mg Tablet Yes 12.5 Twice A Day [facility] Cholecalciferol (Vitamin D3) (Vitamin D3) 3,000 Unit T ablet Cholecalciferol (Vitamin D3) (Vitamin D3) 3,000 Unit Tablet Yes 3000 Daily [facility] Diphenhydramine Hcl 25 Mg Tablet Diphenhydramine Hcl 25 Mg Tablet Yes 25 Bedtime [facility] Doxazosin Mesylate 2 Mg Tablet Doxazosin Mesylate 2 Mg Tablet Yes 4 Bedtime [facility] Glucosamine Sulfate 2KCL (Glucosamine) 1,000 Mg Tablet Glucosamine Sulfate 2KCL (Glucosamine) 1,000 Mg Tablet Yes 750 Daily [facility] Hydrocodone Bit/Acetaminophen ([place] 5-325 Tablet) 1 E ach Tablet Hydrocodone Bit/Acetaminophen ([place] 5-325 Tablet) 1 Each Tablet Yes 1 Every 6 Hours for Pain [facility] Krill Oil 500 Mg Capsule Krill Oil 500 Mg Capsule Yes 1000 Daily [facility] Losartan/Hydrochlorothiazide (Losartan-Hctz 100-25 Mg Tab) 1 Each Tablet Losartan/Hydrochlorothiazide (Losartan-Hctz 100-25 Mg Tab) 1 Each Tablet Yes 1 Daily [facility] Potassium Chloride 10 Meq Tab.er.prt Potassium Chloride 10 Meq Tab. er.prt Yes 99 Twice A Day [facility] Rosuvastatin Calcium (Crestor) 10 Mg Tab Rosuvastatin Calcium (Crestor) 10 Mg Tab Yes 10 Bedtime [facility] Ubidecarenone (Co Q-10) 400 Mg Capsule Ubidecarenone (Co Q-10) 4 00 Mg Capsule Yes 400 Daily [facility] Ubidecarenone (Co Q-10) 400 Mg Capsule Ubidecarenone (Co Q-10) 4 00 Mg Capsule Yes [facility] Aspirin 81 Mg Tablet, 81 Mg Oral Aspirin 81 Mg Tablet, 81 Mg Ora l 2018-08-01 00:00:00 No 81 Daily [facility] Naproxen Sodium 220 Mg Tablet, 220 Mg Oral Naproxen So dium 220 Mg Tablet, 220 Mg Oral 2018-08-01 00:00:00 No 220 Twice A Day [facility] Lisinopril/Hydrochlorothiazide (Lisinopril-Hctz 20-12. 5 Mg Tab) 1 Each Tablet, Lisinopril/Hydrochlorothiazide (Lisinopril-Hctz 20-12.5 Mg Tab) 1 Each Tablet, 2018-04-20 00:00:00 No Daily [facility] Meloxicam 15 Mg Tablet, 15 Mg Oral Meloxicam 15 Mg Tablet, 15 Mg Oral 2018-04-20 00:00:00 No 15 Daily [facility] Procedures Procedure Date / Time Performed Performing Clinician [facility] e REPLACE OF R KNEE JT WITH SYNTH SUB, CEMENT, OPEN APPROACH 00:00:00 SAM SUSAN [facility] X-ray of chest, two views 2018-07-30 00:00:00 SAM SUSAN [place] I [facility] REPLACE OF L KNEE JT WITH SYNTH SUB, CEMENT, OPEN APPROACH 00:00:00 RYAN VARGAS [facility] X-ray of chest, two views 2018-04-20 00:00:00 RYAN VARGAS CH, I [facility] Encounters Start Date/Time End Date/Time Encounter Type Admission Type [facility] Care Department Encounter ID Source 2018-10-24 13:50:00 2018-10-25 23:59:00 Discharged Recurring [facility] [id number] [facility] 2018-08-29 15:20:00 2018-09-27 23:59:00 Discharged Recurring [facility] [id number] [facility] 2018-08-22 14:05:00 2018-08-27 23:59:00 Discharged Recurring [facility] [id number] [facility] 2018-07-31 15:52:00 2018-08-01 15:09:00 Discharged Inpatient 3 RYAN VARGAS [facility] [id number] [facility] 2018-06-29 14:56:00 2018-07-27 23:59:00 Discharged Recurring [facility] [id number] [facility] 2018-05-28 14:50:00 2018-06-27 23:59:00 Discharged Recurring [facility] [id number] [facility] 2018-05-10 16:07:00 2018-05-27 23:59:00 Discharged Recurring [facility] [id number] [facility] 2018-04-24 18:26:00 2018-04-26 18:53:00 Discharged Inpatient 3 RYAN VARGAS [facility] [id number] [facility] 2017-06-28 09:56:00 2017-07-27 23:59:00 Discharged Recurring [facility] [id number] [facility] Results Test Description Test Time Test Comments Results Result Comments Source KNEE RIGHT 1-2 VIEWS 2020-04-21 13:33:00 [place] [address] Patient Name: VEE LÓPEZ MR #: [id number] : 1950 Age/Sex: 69/M Req #: [id number] Adm Physician: Ordered by: LINWOOD COPPOLA MD Report #: [id number] Location: OR Room/Bed: Procedure: [id number] DX/KNEE RIGHT 1-2 VIEWS Exam Date: 04/21/20 Exam Time: 1318 REPORT STATUS: Signed EXAMINATION: KNEE RIGHT 1-2 VIEWS INDICATION: Postoperative COMPARISON: None FINDINGS: 3 views of the right knee demonstrate immediate postoperative findings of expectation of previously seen right total knee arthroplasty hardware with p lacement of antibiotic spacer. No unexpected fracture. Osteochondral loose bodies along the medial knee joint. Postoperative soft tissue emphysema. Surgical skin terese in place. IMPRESSION: Anatomic alignment status post expectation of right total knee arthroplasty hardware and placement of antibiotic spacer. Signed by: Comfort Snyder MD on 04/21/2020 1:35 PM Dictated By: COMFORT SNYDER MD 34 Transcribed By: GERALD on 04/21/201334 COPY TO: LINWOOD COPPOLA MD CHEST 2 VIEWS 2020-04-16 10:30:00 [place] [address] Patient Name: VEE LÓPEZ MR #: [id number] : 1950 Age/Sex: 69/M Req #: [id number] Adm Physician: Ordered by: LINWOOD COPPOLA MD Report #: [id number] Location: OR Room/Bed: Procedure: [id number] DX/CHEST 2 VIEWS Exam Date: Exam Time: REPORT STATUS: Signed Exam: CHEST 2 VIEWS Date: 04/16/2020 10:30 AM INDICATION: PRE-OP Comparison: 07/30/2018 FINDINGS: Lines/Tubes:None Lungs:The lungs are well inflated. No focal consolidation or pulmonary edema. Pleura:No pleural effusion. No pneumothorax. Heart/Mediastinum:The cardiomediastinal silhouette is normal in size and contour. Bones/Soft Tissues: No acute osseous abnormality. Mild multilevel degenerative changes of the thoracic spine are noted. Upper abdomen: Unremarkable. IMPRESSION: Negative for acute intrathoracic process. Signed by: Yaima Akers MD on 04/16/2020 10:35 AM Dictated By: YAIMA AKERS MD 1035 Transcribed By: GERALD on 04/16/20 1035 COPY TO: LINWOOD CPOPOLA MD CTA NECK 2020-02-13 14:27:00 [place] [address] Patient Name: VEE LÓPEZ MR #: [id number] : 1950 Age/Sex: 69/M Req #: [id number] Adm Physician: Ordered by: KEVIN EDWARDS MD Report #: [id number] Location: CT Room/Bed: Procedure: [id number] CT/CTA NECK Exam Date: 02/13/20 Exam Time: 1350 REPORT STATUS: Signed CTA NECK HISTORY: Carotid stenosis COMPARISON: None. TECHNIQUE: CTA of the neck was performed with intravenous iodine based contrast. Coronal, sagittal, 3-D, and oblique maximum intensity projection reformations were created. One or more of the following dose reduction techniques were used: Automated exposure control, adjustment of the mA and/or kV according to patient size, and/or utilization of iterative reconstruction technique. DISCUSSION: If present, any cervical carotid stenosis will be measured as a percentage relative to the [place] artery distal to the stenosis (NASCET). Right Carotid: Moderate calcified plaque at the right carotid bulb causes less than 50% focal stenosis in the proximal right internal carotid artery. The cervical right internal carotid artery has a retropharyngeal course. Left Carotid: Moderate calcified plaque at the left carotid bulb causes up to 50% focal stenosis in the proximal left internal carotid artery. Additional calcified plaque in the proximal left internal carotid artery along with vessel kinking causes another focal area of 50% focal stenosis. The left cervical internal carotid artery has a slight retropharyngeal course. Right vertebral artery: Mild calcified plaque in the right V1 and V3 segments does not cause significant stenosis. Left vertebral artery: Mild calcified plaque at the left vertebral artery ostium does not cause significant stenosis. The intracranial arterial vasculature is partially imaged. Mild calcified plaque in the right vertebral artery V4 segment does not cause significant stenosis. Calcified plaque in the left vertebral artery proximal V4 segment causes severe stenosis. There is additional moderate focal stenosis in the distal left V4 segment. Mild bilateral carotid siphon calcified plaque does not cause significant stenosis. Additional findings: Mild to moderate scattered bilateral paranasal sinus mucosal thickening is present. The palatine tonsils are prominent. The oropharynx and hypopharynx are partially effaced. There is mild mosaic attenuation in the upper lungs. Mildly prominent main pulmonary artery may suggest pulmonary hypertension. Coronary artery calcifications are present. There are mild to moderate degenerative changes throughout the spine. IMPRESSION: 1. Two adjacent areas of approximately 50% focal stenoses in the proximal cervical left internal carotid artery due to calcified plaque and vessel kinking. 2. Moderate right carotid bulb and minimal bilateral cervical vertebral artery calcified plaque without significant stenosis. 3. No other cervical CTA abnormalities. 4. Moderate to severe focal stenoses in the left vertebral artery V4 segment due to calcified plaque. Signed by: Dr. Isaiah Marley M.D. on 02/13/2020 2:52 PM Dictated By: ISAIAH MARLEY MD 51 Transcribed By: GERALD on 02/13/201451 COPY TO: KEVIN EDWARDS MD Hemoglobin 2018-08-01 06:17:00 Test Item Hemoglobin (test code = 02390-6) 10.9 14.0-18.0 [facility] 06:17:00* Test Item Value Reference Range Interpretation Comments Hematocrit (test code = 4544-3) 31.8 38.2-49.6 L [facility]2018-12-05 06:17:00* Test Item Value Reference Range Interpretation Comments Hemoglobin (test code = 02190-7) 10.9 14.0-18.0 L [facility]ematocrit2018-12-05 06:17:00* Test Item Value Reference Range Interpretation Comments Hematocrit (test code = 4544-3) 31.8 38.2-49.6 L [facility]2018-12-05 06:17:00* Test Item Value Reference Range Interpretation Comments Hemoglobin (test code = 95931-1) 10.9 14.0-18.0 L [facility]ematocrit2018-12-05 06:17:00* Test Item Value Reference Range Interpretation Comments Hematocrit (test code = 4544-3) 31.8 38.2-49.6 L [facility]oglobin2018-12-05 06:17:00* Test Item Value Reference Range Interpretation Comments Hemoglobin (test code = 92402-2) 10.9 14.0-18.0 L [facility]ematocrit2018-12-05 06:17:00* Test Item Value Reference Range Interpretation Comments Hematocrit (test code = 4544-3) 31.8 38.2-49.6 L [facility] RIGHT 1-2 [id number] 18:00:00 [place] [address] Patient Name: VEE LÓPEZ MR #: [id number] : 1950 Age/Sex: 67/M Req #: [id number] Adm Physician: RYAN VARGAS MD Ordered by: RYAN VARGAS MD Report #: [id number] Location: MED/SURG Room/Bed: [facility] Procedure: [id number] D X/KNEE RIGHT 1-2 VIEWS Exam Date: 07/31/18 Exam Time : 1620 REPORT STATUS: Signed Rig ht knee radiographs - two views Comparison: None Findings: Status p ost right total knee arthroplasty and patellar resurfacing in anatomic alignme nt. Overlying subcutaneous emphysema, and surgical skin terese are present. Hardware appears intact. No evidence of acute fracture. IMPRESSION: Stat us post right knee replacement in anatomic position. Signed by: Dr. Chinyere Aguilar MD on 07/31/2018 6:02 PM Dictated By: CHINYERE AGUILAR MD Electronically S igned By: CHINYERE AGUILAR MD on 07/31/181801 Transcribed By: GERALD on 07/31/1815 10 COPY TO: RYAN VARGAS MD CHEST 2 [id number] 13:59:00 [place] [address] Patient Name: VEE LÓPEZ MR #: [id number] : 1950 Age/Sex: 67/M Req #: [id number] Adm Physician: Ordered by: RYAN VARGAS MD Report #: [id number] Location: OR Room/Bed: Procedure: [id number] DX/ CHEST 2 VIEWS Exam Date: 07/30/18 Exam Time: 1208 REPORT STATUS: Signed EXAMINATI ON: PA and lateral views of the chest. COMPARISON: None CLINICAL HISTO RY: Preoperative study for knee surgery DISCUSSION: Lines/tubes: None. Lungs: The lungs are well inflated and clear. There is no evidence of pneumonia or pulmonary edema. Pleura: There is no pleural effusion or pneumothorax. Heart and mediastinum: The cardiomediastinal silhouette is normal. Bones and soft tissues: No acute bony abnormalities. Age-indeter minate mild anterior compression deformity of a lower thoracic vertebral body, likely T12. Correlate for point tenderness. IMPRESSION: No acute card iopulmonary abnormalities. Signed by: Dr. Linwood Trent M.D. o n 07/30/2018 2:03 PM Dictated By: LINWOOD TRENT MD 02 Transcribed By: GERALD on 07/30/181402 COPY TO: RYAN VARGAS MD Sodium Vkfut1776-42-24 12:51:00* Test Item Value Reference Range Interpretation Comments Sodium Level (test code = 2951-2) 140 136-145 [facility] Rqguv9141-79-50 12:51:00* Test Item Value Reference Range Interpretation Comments Potassium Level (test code = 2823-3) 3.8 3.5-5.1 [facility]loride Bhuyw5952-95-87 12:51:00* Test Item Value Reference Range Interpretation Comments Chloride Level (test code = 2075-0) 103 98-107 [facility] Dioxide Xokvb2645-97-58 12:51:00* Test Item Value Reference Range Interpretation Comments Carbon Dioxide Level (test code = 2028-9) 28 22-29 [facility]ion Jat5939-56-49 12:51:00* Test Item Value Reference Range Interpretation Comments Anion Gap (test code = 36245-0) 12.8 8-16 [facility] Urea Mwdwwroh9180-45-56 12:51:00* Test Item Value Reference Range Interpretation Comments Blood Urea Nitrogen (test code = 3094-0) 16 7-26 [facility]Creatinine2018-12-03 12:51:00* Test Item Value Reference Range Interpretation Comments Creatinine (test code = 2160-0) 1.11 0.72-1.25 [facility]BUN/Creatinine Dpqae2833-85-80 12:51:00* Test Item Value Reference Range Interpretation Comments BUN/Creatinine Ratio (test code = 3097-3) 14 6-25 [facility] Glomerular Filtration Rate 2018-07-30 12:51:00* Test Item Value Reference Range Interpretation Comments Estimat Glomerular Filtration Rate (test code = 011766281) > 60 >60 Ranges were taken from the National Kidney Disease Education Program and the [facility] Kidney Foundation literature.Reference ranges:60 or greater: Bufmsd71-40 ( for 3 consecutive months): Chronic kidney disease 15 or less: Kidney failureTexas Health AllenGlucose Hdzyh6281-73-71 12:51:00* Test Item Value Reference Range Interpretation Comments Glucose Level (test code = CWX0201) 114 74-118 [facility]Calcium Brkdv8467-93-01 12:51:00* Test Item Value Reference Range Interpretation Comments Calcium Level (test code = 06456-3) 10.2 8.4-10.2 [facility] Mmucd2346-61-60 12:51:00* Test Item Value Reference Range Interpretation Comments Sodium Level (test code = 2951-2) 140 136-145 [facility]Potassium Kkwqr5542-88-30 12:51:00* Test Item Value Reference Range Interpretation Comments Potassium Level (test code = 2823-3) 3.8 3.5-5.1 [facility] AllenChloride Ggirp3192-28-91 12:51:00* Test Item Value Reference Range Interpretation Comments Chloride Level (test code = 2075-0) 103 98-107 [facility] AllenCarbon Dioxide Fobhd0057-51-96 12:51:00* Test Item Value Reference Range Interpretation Comments Carbon Dioxide Level (test code = 2028-9) 28 22-29 [facility] AllenAnion Xpa3511-37-69 12:51:00* Test Item Value Reference Range Interpretation Comments Anion Gap (test code = 39543-0) 12.8 8-16 [facility] Urea Cakgfqdh6402-95-14 12:51:00* Test Item Value Reference Range Interpretation Comments Blood Urea Nitrogen (test code = 3094-0) 16 7-26 [facility] AllenCreatinine2018-12-03 12:51:00* Test Item Value Reference Range Interpretation Comments Creatinine (test code = 2160-0) 1.11 0.72-1.25 [facility] AllenBUN/Creatinine Laapr2539-48-66 12:51:00* Test Item Value Reference Range Interpretation Comments BUN/Creatinine Ratio (test code = 3097-3) 14 6-25 [facility]at Glomerular Filtration Rate 2018-07-30 12:51:00* Test Item Value Reference Range Interpretation Comments Estimat Glomerular Filtration Rate (test code = 518851839) > 60 >60 Ranges were taken from the National Kidney Disease Education Program and the [facility] Kidney Foundation literature.Reference ranges:60 or greater: Xczeou44-08 ( for 3 consecutive months): Chronic kidney disease 15 or less: Kidney failureTexas Health AllenGlucose Hbwjd1318-00-55 12:51:00* Test Item Value Reference Range Interpretation Comments Glucose Level (test code = ORD3982) 114 74-118 [facility]Calcium Fgbqh4525-65-83 12:51:00* Test Item Value Reference Range Interpretation Comments Calcium Level (test code = 15000-2) 10.2 8.4-10.2 [facility] Qglgi8230-42-12 12:51:00* Test Item Value Reference Range Interpretation Comments Sodium Level (test code = 2951-2) 140 136-145 [facility]Potassium Cryjv1587-26-22 12:51:00* Test Item Value Reference Range Interpretation Comments Potassium Level (test code = 2823-3) 3.8 3.5-5.1 [facility] AllenChloride Tamqz3330-44-60 12:51:00* Test Item Value Reference Range Interpretation Comments Chloride Level (test code = 2075-0) 103 98-107 [facility] AllenCarbon Dioxide Udhzc8320-13-90 12:51:00* Test Item Value Reference Range Interpretation Comments Carbon Dioxide Level (test code = 2028-9) 28 22-29 [facility] AllenAnion Wid2930-62-86 12:51:00* Test Item Value Reference Range Interpretation Comments Anion Gap (test code = 56037-7) 12.8 8-16 [facility] Urea Vwdvgfqb8893-44-64 12:51:00* Test Item Value Reference Range Interpretation Comments Blood Urea Nitrogen (test code = 3094-0) 16 7-26 [facility] AllenCreatinine2018-12-03 12:51:00* Test Item Value Reference Range Interpretation Comments Creatinine (test code = 2160-0) 1.11 0.72-1.25 [facility]BUN/Creatinine Bmqqd0482-80-03 12:51:00* Test Item Value Reference Range Interpretation Comments BUN/Creatinine Ratio (test code = 3097-3) 14 6-25 [facility]at Glomerular Filtration Rate 2018-07-30 12:51:00* Test Item Value Reference Range Interpretation Comments Estimat Glomerular Filtration Rate (test code = 663716682) > 60 >60 Ranges were taken from the National Kidney Disease Education Program and the [facility] Kidney Foundation literature.Reference ranges:60 or greater: Gxzglu99-66 ( for 3 consecutive months): Chronic kidney disease 15 or less: Kidney failureTexas Health AllenGlucose Wnsfi2845-13-00 12:51:00* Test Item Value Reference Range Interpretation Comments Glucose Level (test code = KDR8801) 114 74-118 [facility]Calcium Gcgxo6761-42-17 12:51:00* Test Item Value Reference Range Interpretation Comments Calcium Level (test code = 73619-6) 10.2 8.4-10.2 [facility] Trlug8024-49-92 12:51:00* Test Item Value Reference Range Interpretation Comments Sodium Level (test code = 2951-2) 140 136-145 [facility] AllenPotassium Fgowx7251-93-61 12:51:00* Test Item Value Reference Range Interpretation Comments Potassium Level (test code = 2823-3) 3.8 3.5-5.1 [facility] AllenChloride Aowsi6546-62-37 12:51:00* Test Item Value Reference Range Interpretation Comments Chloride Level (test code = 2075-0) 103 98-107 [facility] AllenCarbon Dioxide Gdlpx2943-38-35 12:51:00* Test Item Value Reference Range Interpretation Comments Carbon Dioxide Level (test code = 2028-9) 28 22-29 [facility] AllenAnion Fye7090-71-08 12:51:00* Test Item Value Reference Range Interpretation Comments Anion Gap (test code = 21194-5) 12.8 8-16 [facility]Blood Urea Mogoeppx1956-72-83 12:51:00* Test Item Value Reference Range Interpretation Comments Blood Urea Nitrogen (test code = 3094-0) 16 7-26 [facility] AllenCreatinine2018-12-03 12:51:00* Test Item Value Reference Range Interpretation Comments Creatinine (test code = 2160-0) 1.11 0.72-1.25 [facility] AllenBUN/Creatinine Qwefu8349-29-30 12:51:00* Test Item Value Reference Range Interpretation Comments BUN/Creatinine Ratio (test code = 3097-3) 14 02-19 [facility] AllenEstimat Glomerular Filtration Rate 2018-07-30 12:51:00* Test Item Value Reference Range Interpretation Comments Estimat Glomerular Filtration Rate (test code = 451135656) > 60 >60 Ranges were taken from the National Kidney Disease Education Program and the [facility] Kidney Foundation literature.Reference ranges:60 or greater: Txjenc73-81 ( for 3 consecutive months): Chronic kidney disease 15 or less: Kidney failureTexas Health AllenGlucose Enrkb8722-93-85 12:51:00* Test Item Value Reference Range Interpretation Comments Glucose Level (test code = IOX2303) 114 74-118 [facility] AllenCalcium Elnvx5643-35-54 12:51:00* Test Item Value Reference Range Interpretation Comments Calcium Level (test code = 15660-2) 10.2 8.4-10.2 [facility] AllenWhite Blood Polxk4318-34-16 12:23:00* Test Item Value Reference Range Interpretation Comments White Blood Count (test code = 6690-2) 8.19 4.8-10.8 [facility] AllenRed Blood Mnyox0834-75-22 12:23:00* Test Item Value Reference Range Interpretation Comments Red Blood Count (test code = 789-8) 5.09 4.3-5.7 [facility] AllenMean Corpuscular Rioovu6907-41-62 12:23:00* Test Item Value Reference Range Interpretation Comments Mean Corpuscular Volume (test code = 787-2) 88.6 81-99 [facility] AllenMean Corpuscular Zycoffnjmm2106-11-07 12:23:00* Test Item Value Reference Range Interpretation Comments Mean Corpuscular Hemoglobin (test code = 785-6) 29.9 28-32 [facility] AllenMean Corpuscular Hemoglobin Concent 2018-07-30 12:23:00* Test Item Value Reference Range Interpretation Comments Mean Corpuscular Hemoglobin Concent (test code = 786-4) 33.7 31-35 [facility] AllenRed Cell Distribution Dvlob9999-42-76 12:23:00* Test Item Value Reference Range Interpretation Comments Red Cell Distribution Width (test code = 04652-5) 12.7 11.7 -14.4 [facility] AllenPlatelet Nllht1245-87-35 12:23:00* Test Item Value Reference Range Interpretation Comments Platelet Count (test code = 777-3) 191 140-360 [facility] AllenNeutrophils (%) (Auto)2018-07-30 12:23:00 * Test Item Value Reference Range Interpretation Comments Neutrophils (%) (Auto) (test code = 22281-5) 69.8 38.7-80.0 [facility] AllenLymphocytes (%) (Auto)2018-07-30 12:23:00 * Test Item Value Reference Range Interpretation Comments Lymphocytes (%) (Auto) (test code = 736-9) 17.8 18.0-39.1 L [facility] AllenMonocytes (%) (Auto)2018-07-30 12:23:00* Test Item Value Reference Range Interpretation Comments Monocytes (%) (Auto) (test code = 5905-5) 8.8 4.4-11.3 [facility] AllenEosinophils (%) (Auto)2018-07-30 12:23:00 * Test Item Value Reference Range Interpretation Comments Eosinophils (%) (Auto) (test code = 713-8) 2.6 0.0-6.0 [facility]2018-[facility]-30 12:23:00* Test Item Value Reference Range Interpretation Comments Basophils (%) (Auto) (test code = 706-2) 0.5 0.0-1.0 [facility] %2018-07-30 12:23:00* Test Item Value Reference Range Interpretation Comments IM GRANULOCYTES % (test code = IM GRANULOCYTES %) 0.5 0.0- 1.0 [facility]Ne[facility]ils # (Auto)2018-07-30 12:23:00* Test Item Value Reference Range Interpretation Comments Neutrophils # (Auto) (test code = 751-8) 5.7 2.1-6.9 [facility]Lymph[facility] # (Auto)2018-07-30 12:23:00* Test Item Value Reference Range Interpretation Comments Lymphocytes # (Auto) (test code = 75583-1) 1.5 1.0-3.2 [facility] # (Auto)2018-07-30 12:23:00* Test Item Value Reference Range Interpretation Comments Monocytes # (Auto) (test code = 742-7) 0.7 0.2-0.8 [facility] # (Auto)2018-07-30 12:23:00* Test Item Value Reference Range Interpretation Comments Eosinophils # (Auto) (test code = 711-2) 0.2 0.0-0.4 [facility] # (Auto)2018-07-30 12:23:00* Test Item Value Reference Range Interpretation Comments Basophils # (Auto) (test code = 704-7) 0.0 0.0-0.1 [facility]Absolute Immature Granulocyte (auto 2018-07-30 12:23:00* Test Item Value Reference Range Interpretation Comments Absolute Immature Granulocyte (auto (brigid t code = Absolute Immature Granulocyte (auto) 0.04 0-0.1 [facility] AllenWhite Blood Fmqjq7506-08-65 12:23:00* Test Item Value Reference Range Interpretation Comments White Blood Count (test code = 6690-2) 8.19 4.8-10.8 [facility] AllenRed Blood Fuhcf3772-37-03 12:23:00* Test Item Value Reference Range Interpretation Comments Red Blood Count (test code = 789-8) 5.09 4.3-5.7 [facility] AllenMean Corpuscular Ohpzko4979-09-32 12:23:00* Test Item Value Reference Range Interpretation Comments Mean Corpuscular Volume (test code = 787-2) 88.6 81-99 [facility] Corpuscular Zyttxwewwe8266-13-48 12:23:00* Test Item Value Reference Range Interpretation Comments Mean Corpuscular Hemoglobin (test code = 785-6) 29.9 28-32 [facility] Hem[facility] Concent 2018-07-30 12:23:00* Test Item Value Reference Range Interpretation Comments Mean Corpuscular Hemoglobin Concent (test code = 786-4) 33.7 31-35 [facility]Red Cell Distribution Biaho0708-20-91 12:23:00* Test Item Value Reference Range Interpretation Comments Red Cell Distribution Width (test code = 18013-6) 12.7 11.7 -14.4 [facility] AllenPlatelet Zyxlp8305-84-19 12:23:00* Test Item Value Reference Range Interpretation Comments Platelet Count (test code = 777-3) 191 140-360 [facility]Neutrophils (%) (Auto)2018-07-30 12:23:00 * Test Item Value Reference Range Interpretation Comments Neutrophils (%) (Auto) (test code = 54185-6) 69.8 38.7-80.0 [facility] AllenLymphocytes (%) (Auto)2018-07-30 12:23:00 * Test Item Value Reference Range Interpretation Comments Lymphocytes (%) (Auto) (test code = 736-9) 17.8 18.0-39.1 L [facility]Monocytes (%) (Auto)2018-07-30 12:23:00* Test Item Value Reference Range Interpretation Comments Monocytes (%) (Auto) (test code = 5905-5) 8.8 4.4-11.3 [facility]Eosinophils (%) (Auto)2018-07-30 12:23:00 * Test Item Value Reference Range Interpretation Comments Eosinophils (%) (Auto) (test code = 713-8) 2.6 0.0-6.0 [facility]Bas[facility] (%) (Auto)2018-07-30 12:23:00* Test Item Value Reference Range Interpretation Comments Basophils (%) (Auto) (test code = 706-2) 0.5 0.0-1.0 [facility]IM [facility]ANULOCYTES %2018-07-30 12:23:00* Test Item Value Reference Range Interpretation Comments IM GRANULOCYTES % (test code = IM GRANULOCYTES %) 0.5 0.0- 1.0 [facility]Neutrophils # (Auto)2018-07-30 12:23:00* Test Item Value Reference Range Interpretation Comments Neutrophils # (Auto) (test code = 751-8) 5.7 2.1-6.9 [facility]Lymphocytes # (Auto)2018-07-30 12:23:00* Test Item Value Reference Range Interpretation Comments Lymphocytes # (Auto) (test code = 06743-9) 1.5 1.0-3.2 [facility]Mon[facility] # (Auto)2018-07-30 12:23:00* Test Item Value Reference Range Interpretation Comments Monocytes # (Auto) (test code = 742-7) 0.7 0.2-0.8 [facility]Eosinophils # (Auto)2018-07-30 12:23:00* Test Item Value Reference Range Interpretation Comments Eosinophils # (Auto) (test code = 711-2) 0.2 0.0-0.4 [facility]Bas[facility] # (Auto)2018-07-30 12:23:00* Test Item Value Reference Range Interpretation Comments Basophils # (Auto) (test code = 704-7) 0.0 0.0-0.1 [facility] AllenAbsolute Immature Granulocyte (auto 2018-07-30 12:23:00* Test Item Value Reference Range Interpretation Comments Absolute Immature Granulocyte (auto (brigid t code = Absolute Immature Granulocyte (auto) 0.04 0-0.1 [facility] AllenWhite Blood Nwfzz8203-42-92 12:23:00* Test Item Value Reference Range Interpretation Comments White Blood Count (test code = 6690-2) 8.19 4.8-10.8 [facility] AllenRed Blood Giynw4805-92-59 12:23:00* Test Item Value Reference Range Interpretation Comments Red Blood Count (test code = 789-8) 5.09 4.3-5.7 [facility] AllenMean Corpuscular Ralzgy8986-87-36 12:23:00* Test Item Value Reference Range Interpretation Comments Mean Corpuscular Volume (test code = 787-2) 88.6 81-99 [facility]Mean Corpuscular Wcaexlkxfn8813-66-03 12:23:00* Test Item Value Reference Range Interpretation Comments Mean Corpuscular Hemoglobin (test code = 785-6) 29.9 28-32 [facility]Mean Corpuscular Hemoglobin Concent 2018-07-30 12:23:00* Test Item Value Reference Range Interpretation Comments Mean Corpuscular Hemoglobin Concent (test code = 786-4) 33.7 31-35 [facility] AllenRed Cell Distribution Mmnhw5481-14-19 12:23:00* Test Item Value Reference Range Interpretation Comments Red Cell Distribution Width (test code = 87975-7) 12.7 11.7 -14.4 [facility]Platelet Sqfcb7944-14-97 12:23:00* Test Item Value Reference Range Interpretation Comments Platelet Count (test code = 777-3) 191 140-360 [facility]Neutrophils (%) (Auto)2018-07-30 12:23:00 * Test Item Value Reference Range Interpretation Comments Neutrophils (%) (Auto) (test code = 79381-5) 69.8 38.7-80.0 [facility] AllenLymphocytes (%) (Auto)2018-07-30 12:23:00 * Test Item Value Reference Range Interpretation Comments Lymphocytes (%) (Auto) (test code = 736-9) 17.8 18.0-39.1 L [facility]Monocytes (%) (Auto)2018-07-30 12:23:00* Test Item Value Reference Range Interpretation Comments Monocytes (%) (Auto) (test code = 5905-5) 8.8 4.4-11.3 [facility]Eosinophils (%) (Auto)2018-07-30 12:23:00 * Test Item Value Reference Range Interpretation Comments Eosinophils (%) (Auto) (test code = 713-8) 2.6 0.0-6.0 [facility]Bas[facility] (%) (Auto)2018-07-30 12:23:00* Test Item Value Reference Range Interpretation Comments Basophils (%) (Auto) (test code = 706-2) 0.5 0.0-1.0 [facility] AllenIM GRANULOCYTES %2018-07-30 12:23:00* Test Item Value Reference Range Interpretation Comments IM GRANULOCYTES % (test code = IM GRANULOCYTES %) 0.5 0.0- 1.0 [facility]Neutrophils # (Auto)2018-07-30 12:23:00* Test Item Value Reference Range Interpretation Comments Neutrophils # (Auto) (test code = 751-8) 5.7 2.1-6.9 [facility]Lymphocytes # (Auto)2018-07-30 12:23:00* Test Item Value Reference Range Interpretation Comments Lymphocytes # (Auto) (test code = 48768-9) 1.5 1.0-3.2 [facility]Mon[facility] # (Auto)2018-07-30 12:23:00* Test Item Value Reference Range Interpretation Comments Monocytes # (Auto) (test code = 742-7) 0.7 0.2-0.8 [facility]Eosinophils # (Auto)2018-07-30 12:23:00* Test Item Value Reference Range Interpretation Comments Eosinophils # (Auto) (test code = 711-2) 0.2 0.0-0.4 [facility]Bas[facility] # (Auto)2018-07-30 12:23:00* Test Item Value Reference Range Interpretation Comments Basophils # (Auto) (test code = 704-7) 0.0 0.0-0.1 [facility] AllenAbsolute Immature Granulocyte (auto 2018-07-30 12:23:00* Test Item Value Reference Range Interpretation Comments Absolute Immature Granulocyte (auto (brigid t code = Absolute Immature Granulocyte (auto) 0.04 0-0.1 [facility] AllenWhite Blood Irskt5496-66-17 12:23:00* Test Item Value Reference Range Interpretation Comments White Blood Count (test code = 6690-2) 8.19 4.8-10.8 [facility] AllenRed Blood Cojug5706-16-54 12:23:00* Test Item Value Reference Range Interpretation Comments Red Blood Count (test code = 789-8) 5.09 4.3-5.7 [facility] AllenMean Corpuscular Crvrco6693-58-90 12:23:00* Test Item Value Reference Range Interpretation Comments Mean Corpuscular Volume (test code = 787-2) 88.6 81-99 [facility]Mean Corpuscular Fboidqrsha5933-16-34 12:23:00* Test Item Value Reference Range Interpretation Comments Mean Corpuscular Hemoglobin (test code = 785-6) 29.9 28-32 [facility]Mean Corpuscular Hemoglobin Concent 2018-07-30 12:23:00* Test Item Value Reference Range Interpretation Comments Mean Corpuscular Hemoglobin Concent (test code = 786-4) 33.7 31-35 [facility] AllenRed Cell Distribution Dmarv2582-81-53 12:23:00* Test Item Value Reference Range Interpretation Comments Red Cell Distribution Width (test code = 12358-5) 12.7 11.7 -14.4 [facility] AllenPlatelet Kgtmc0958-33-68 12:23:00* Test Item Value Reference Range Interpretation Comments Platelet Count (test code = 777-3) 191 140-360 [facility]Neutrophils (%) (Auto)2018-07-30 12:23:00 * Test Item Value Reference Range Interpretation Comments Neutrophils (%) (Auto) (test code = 27024-7) 69.8 38.7-80.0 [facility] AllenLymphocytes (%) (Auto)2018-07-30 12:23:00 * Test Item Value Reference Range Interpretation Comments Lymphocytes (%) (Auto) (test code = 736-9) 17.8 18.0-39.1 L [facility]Monocytes (%) (Auto)2018-07-30 12:23:00* Test Item Value Reference Range Interpretation Comments Monocytes (%) (Auto) (test code = 5905-5) 8.8 4.4-11.3 [facility]Eosinophils (%) (Auto)2018-07-30 12:23:00 * Test Item Value Reference Range Interpretation Comments Eosinophils (%) (Auto) (test code = 713-8) 2.6 0.0-6.0 [facility]Bas[facility] (%) (Auto)2018-07-30 12:23:00* Test Item Value Reference Range Interpretation Comments Basophils (%) (Auto) (test code = 706-2) 0.5 0.0-1.0 [facility] AllenIM GRANULOCYTES %2018-07-30 12:23:00* Test Item Value Reference Range Interpretation Comments IM GRANULOCYTES % (test code = IM GRANULOCYTES %) 0.5 0.0- 1.0 [facility]Neutrophils # (Auto)2018-07-30 12:23:00* Test Item Value Reference Range Interpretation Comments Neutrophils # (Auto) (test code = 751-8) 5.7 2.1-6.9 [facility] AllenLymphocytes # (Auto)2018-07-30 12:23:00* Test Item Value Reference Range Interpretation Comments Lymphocytes # (Auto) (test code = 15072-0) 1.5 1.0-3.2 [facility]Monocytes # (Auto)2018-07-30 12:23:00* Test Item Value Reference Range Interpretation Comments Monocytes # (Auto) (test code = 742-7) 0.7 0.2-0.8 [facility]Eosinophils # (Auto)2018-07-30 12:23:00* Test Item Value Reference Range Interpretation Comments Eosinophils # (Auto) (test code = 711-2) 0.2 0.0-0.4 [facility]Bas[facility] # (Auto)2018-07-30 12:23:00* Test Item Value Reference Range Interpretation Comments Basophils # (Auto) (test code = 704-7) 0.0 0.0-0.1 [facility] AllenAbsolute Immature Granulocyte (auto 2018-07-30 12:23:00* Test Item Value Reference Range Interpretation Comments Absolute Immature Granulocyte (auto (brigid t code = Absolute Immature Granulocyte (auto) 0.04 0-0.1 [facility] AllenUrine Cvyvr5600-97-97 12:09:00* Test Item Value Reference Range Interpretation Comments Urine Color (test code = 5778-6) YELLOW YELLOW [facility] Geuqtcj8658-73-02 12:09:00* Test Item Value Reference Range Interpretation Comments Urine Clarity (test code = 28217-3) CLEAR CLEAR [facility] Specific Arbxqpg2587-69-61 12:09:00 * Test Item Value Reference Range Interpretation Comments Urine Specific [place] (test code = 5811-5) 1.015 1.010-1.02 5 [facility] sC4587-35-45 12:09:00* Test Item Value Reference Range Interpretation Comments Urine pH (test code = 20620-6) 7 5-7 [facility] Leukocyte Sytsmrzj6515-08-04 12:09:00* Test Item Value Reference Range Interpretation Comments Urine Leukocyte Esterase (test code = 5799-2) NEGATIVE NEGATIVE [facility] Gslitrn4504-72-21 12:09:00* Test Item Value Reference Range Interpretation Comments Urine Nitrite (test code = 80157-0) NEGATIVE NEGATIVE [facility] Dxmonqc1116-70-38 12:09:00* Test Item Value Reference Range Interpretation Comments Urine Protein (test code = 5804-0) NEGATIVE NEGATIVE [facility] Glucose (UA)2018-07-30 12:09:00* Test Item Value Reference Range Interpretation Comments Urine Glucose (UA) (test code = 2349-9) NEGATIVE NEGATIVE [facility] Gjztumc7730-20-47 12:09:00* Test Item Value Reference Range Interpretation Comments Urine Ketones (test code = 57370-6) NEGATIVE NEGATIVE [facility] Eslofvrfnhbc8308-61-80 12:09:00* Test Item Value Reference Range Interpretation Comments Urine Urobilinogen (test code = 15201-6) 0.2 0.2-1 [facility] Tzrfkowgs5283-91-39 12:09:00* Test Item Value Reference Range Interpretation Comments Urine Bilirubin (test code = 1978-6) NEGATIVE NEGATIVE [facility] Vxxln8084-63-94 12:09:00* Test Item Value Reference Range Interpretation Comments Urine Blood (test code = 09976-6) NEGATIVE NEGATIVE [facility] Oiner1883-83-81 12:09:00* Test Item Value Reference Range Interpretation Comments Urine Color (test code = 5778-6) YELLOW YELLOW [facility] Exmnpnu3971-86-55 12:09:00* Test Item Value Reference Range Interpretation Comments Urine Clarity (test code = 52616-1) CLEAR CLEAR [facility] Specific Pxynujy6387-28-09 12:09:00 * Test Item Value Reference Range Interpretation Comments Urine Specific [place] (test code = 5811-5) 1.015 1.010-1.02 5 [facility] fV0310-63-02 12:09:00* Test Item Value Reference Range Interpretation Comments Urine pH (test code = 65744-4) 7 5-7 [facility] Leukocyte Xoaoesfz3047-14-22 12:09:00* Test Item Value Reference Range Interpretation Comments Urine Leukocyte Esterase (test code = 5799-2) NEGATIVE NEGATIVE [facility] Pentnme2293-98-87 12:09:00* Test Item Value Reference Range Interpretation Comments Urine Nitrite (test code = 08410-2) NEGATIVE NEGATIVE [facility] Ozxthip9666-51-42 12:09:00* Test Item Value Reference Range Interpretation Comments Urine Protein (test code = 5804-0) NEGATIVE NEGATIVE [facility] Glucose (UA)2018-07-30 12:09:00* Test Item Value Reference Range Interpretation Comments Urine Glucose (UA) (test code = 2349-9) NEGATIVE NEGATIVE [facility] Bhwkuew8834-36-38 12:09:00* Test Item Value Reference Range Interpretation Comments Urine Ketones (test code = 76435-1) NEGATIVE NEGATIVE [facility] Cejafwcnxhms7185-29-70 12:09:00* Test Item Value Reference Range Interpretation Comments Urine Urobilinogen (test code = 58728-7) 0.2 0.2-1 [facility] Onimccztg7548-77-90 12:09:00* Test Item Value Reference Range Interpretation Comments Urine Bilirubin (test code = 1978-6) NEGATIVE NEGATIVE [facility] Jecls5404-31-04 12:09:00* Test Item Value Reference Range Interpretation Comments Urine Blood (test code = 10677-8) NEGATIVE NEGATIVE [facility] Utkzi0833-21-38 12:09:00* Test Item Value Reference Range Interpretation Comments Urine Color (test code = 5778-6) YELLOW YELLOW [facility] Nbfwfrj7080-89-94 12:09:00* Test Item Value Reference Range Interpretation Comments Urine Clarity (test code = 88366-9) CLEAR CLEAR [facility] Specific Dsohdee9396-91-95 12:09:00 * Test Item Value Reference Range Interpretation Comments Urine Specific [place] (test code = 5811-5) 1.015 1.010-1.02 5 [facility] gR4507-45-84 12:09:00* Test Item Value Reference Range Interpretation Comments Urine pH (test code = 62330-2) 7 5-7 [facility] Leukocyte Gxbvkltg3665-74-51 12:09:00* Test Item Value Reference Range Interpretation Comments Urine Leukocyte Esterase (test code = 5799-2) NEGATIVE NEGATIVE [facility] Rlwiinl3908-20-85 12:09:00* Test Item Value Reference Range Interpretation Comments Urine Nitrite (test code = 03452-0) NEGATIVE NEGATIVE [facility] Bgivqbc4710-67-71 12:09:00* Test Item Value Reference Range Interpretation Comments Urine Protein (test code = 5804-0) NEGATIVE NEGATIVE [facility] Glucose (UA)2018-07-30 12:09:00* Test Item Value Reference Range Interpretation Comments Urine Glucose (UA) (test code = 2349-9) NEGATIVE NEGATIVE [facility] Qcohmlz8252-51-22 12:09:00* Test Item Value Reference Range Interpretation Comments Urine Ketones (test code = 31636-3) NEGATIVE NEGATIVE [facility] Uaoumgmrtcmt0627-87-79 12:09:00* Test Item Value Reference Range Interpretation Comments Urine Urobilinogen (test code = 65958-4) 0.2 0.2-1 [facility] Bybzvqytj0762-32-42 12:09:00* Test Item Value Reference Range Interpretation Comments Urine Bilirubin (test code = 1978-6) NEGATIVE NEGATIVE [facility] Jwksx8436-94-84 12:09:00* Test Item Value Reference Range Interpretation Comments Urine Blood (test code = 37578-0) NEGATIVE NEGATIVE [facility] Eltws5679-79-24 12:09:00* Test Item Value Reference Range Interpretation Comments Urine Color (test code = 5778-6) YELLOW YELLOW [facility] Djvpytu6044-41-70 12:09:00* Test Item Value Reference Range Interpretation Comments Urine Clarity (test code = 91022-4) CLEAR CLEAR [facility] Specific Kbbohaf7382-59-20 12:09:00 * Test Item Value Reference Range Interpretation Comments Urine Specific [place] (test code = 5811-5) 1.015 1.010-1.02 5 [facility] zL2020-63-74 12:09:00* Test Item Value Reference Range Interpretation Comments Urine pH (test code = 39631-7) 7 5-7 [facility] Leukocyte Glurdvwa8635-96-03 12:09:00* Test Item Value Reference Range Interpretation Comments Urine Leukocyte Esterase (test code = 5799-2) NEGATIVE NEGATIVE [facility] Pitefxv4857-48-14 12:09:00* Test Item Value Reference Range Interpretation Comments Urine Nitrite (test code = 28314-1) NEGATIVE NEGATIVE [facility] Csmeyvr6484-55-66 12:09:00* Test Item Value Reference Range Interpretation Comments Urine Protein (test code = 5804-0) NEGATIVE NEGATIVE [facility] Glucose (UA)2018-07-30 12:09:00* Test Item Value Reference Range Interpretation Comments Urine Glucose (UA) (test code = 2349-9) NEGATIVE NEGATIVE [facility] Akxmrux7682-85-98 12:09:00* Test Item Value Reference Range Interpretation Comments Urine Ketones (test code = 41723-4) NEGATIVE NEGATIVE [facility] Dxwdnrxsuwqx9289-95-40 12:09:00* Test Item Value Reference Range Interpretation Comments Urine Urobilinogen (test code = 19696-0) 0.2 0.2-1 [facility] Ytnuotwsn3273-78-79 12:09:00* Test Item Value Reference Range Interpretation Comments Urine Bilirubin (test code = 1978-6) NEGATIVE NEGATIVE [facility] Lqnpl1741-36-31 12:09:00* Test Item Value Reference Range Interpretation Comments Urine Blood (test code = 91091-1) NEGATIVE NEGATIVE [facility] AllenHemoglobin2018-08-30 05:55:00* Test Item Value Reference Range Interpretation Comments Hemoglobin (test code = 73764-1) 10.4 14.0-18.0 L [place] 45848018-08-30 05:55:00* Test Item Value Reference Range Interpretation Comments Hematocrit (test code = 4544-3) 29.8 38.2-49.6 [facility] 05:55:00* Test Item Value Reference Range Interpretation Comments Hemoglobin (test code = 66944-4) 10.4 14.0-18.0 L [facility]ocrit2018-08-30 05:55:00* Test Item Value Reference Range Interpretation Comments Hematocrit (test code = 4544-3) 29.8 38.2-49.6 L [facility] 05:55:00* Test Item Value Reference Range Interpretation Comments Hemoglobin (test code = 45449-9) 10.4 14.0-18.0 L [place] 45848018-08-30 05:55:00* Test Item Value Reference Range Interpretation Comments Hematocrit (test code = 4544-3) 29.8 38.2-49.6 L [facility] Geishnn1382-62-56 12:14:00* Test Item Value Reference Range Interpretation Comments Bedside Glucose (test code = 18781-0) 158 70-120 H Meter ID: [id number] Regional Medical Center Glucose 2018-04-25 12:14:00* Test Item Value Reference Range Interpretation Comments Bedside Glucose (test code = 69366-0) 158 70-120 H Meter ID: [id number] Regional Medical Center Glucose 2018-04-25 12:14:00* Test Item Value Reference Range Interpretation Comments Bedside Glucose (test code = 02970-9) 158 70-120 H Meter ID: [id number] Regional Medical Center Glucose 2018-04-25 12:14:00* Test Item Value Reference Range Interpretation Comments Bedside Glucose (test code = 60504-9) 158 70-120 H Meter ID: [id number] [facility] Glucose 2018-04-25 12:14:00* Test Item Value Reference Range Interpretation Comments Bedside Glucose (test code = 99795-6) 158 70-120 H Meter ID: [id number] [facility] Glucose 2018-04-25 12:14:00* Test Item Value Reference Range Interpretation Comments Bedside Glucose (test code = 18284-4) 158 70-120 H Meter ID: [id number] [facility] Glucose 2018-04-25 12:14:00* Test Item Value Reference Range Interpretation Comments Bedside Glucose (test code = 22874-4) 158 70-120 H Meter ID: [id number] [facility] 2018-04-24 19:35:00 [place] [address] Patient Name: VEE LÓPEZ MR #: [id number] : 1950 Age/Sex: 67/M Req #: [id number] Adm Physician: Ordered by: RYAN VARGAS MD Report #: [id number] Location: OR Room/Bed: Procedure: [id number] DX/KNEE LEFT 1-2 VIEWS Exam Dominic e: 04/24/18 Exam Time: 1900 REPORT STATUS: Sign ed LEFT KNEE X-RAY - 2 VIEWS HISTORY: COMPARISO N: None available. FINDINGS: Bones: Status post total knee arthrop lasty. Hardware appears intact without loosening. Increased sclerosis of the p atella. Osseous alignment is within normal limits. Joints: The joint sp aces are well-maintained. Soft tissues: Air-fluid level within the suprap atellar and infrapatellar region, likely postoperative hematoma. Terese overl moriah the skin of the anterior knee. IMPRESSION: Left knee total arthr oplasty. Hardware appears intact and in good alignment. Signed by: Dr. Chani Castro M.D. on 04/24/2018 7:46 PM Dictated By: KHADIJAH CASTRO MD 44 Transcribed By: GERALD on 04/24/181945 COPY TO: RYAN VARGAS Urine Femay8369-70-68 09:53:00* Test Item Value Reference Range Interpretation Comments Urine Color (test code = 5778-6) YELLOW YELLOW [facility] Ieweoux1787-08-02 09:53:00* Test Item Value Reference Range Interpretation Comments Urine Clarity (test code = 79534-0) CLEAR CLEAR [facility] Specific Hjhrulw3015-76-17 09:53:00 * Test Item Value Reference Range Interpretation Comments Urine Specific [place] (test code = 5811-5) 1.020 1.010-1.02 5 [facility] hK5989-00-01 09:53:00* Test Item Value Reference Range Interpretation Comments Urine pH (test code = 89055-5) 7 5-7 [facility] Leukocyte Alzhfjla9949-88-36 09:53:00* Test Item Value Reference Range Interpretation Comments Urine Leukocyte Esterase (test code = 5799-2) NEGATIVE NEGATIVE [facility] Ftqvfab2467-58-47 09:53:00* Test Item Value Reference Range Interpretation Comments Urine Nitrite (test code = 97399-9) NEGATIVE NEGATIVE [facility] Vdnfsrh0232-02-82 09:53:00* Test Item Value Reference Range Interpretation Comments Urine Protein (test code = 5804-0) NEGATIVE NEGATIVE [facility] Glucose (UA)2018-04-24 09:53:00* Test Item Value Reference Range Interpretation Comments Urine Glucose (UA) (test code = 2349-9) NEGATIVE NEGATIVE [facility] [place]3657-67-01 09:53:00* Test Item Value Reference Range Interpretation Comments Urine Ketones (test code = 23915-3) NEGATIVE [facility]GATIVE [facility] Bvvouyeautfg3857-82-99 09:53:00* Test Item Value Reference Range Interpretation Comments Urine Urobilinogen (test code = 81829-7) 0.2 0.2-1 [facility] Eqmghrtuu7724-10-60 09:53:00* Test Item Value Reference Range Interpretation Comments Urine Bilirubin (test code = 1978-6) NEGATIVE NEGATIVE [facility] Rvtkv0701-62-19 09:53:00* Test Item Value Reference Range Interpretation Comments Urine Blood (test code = 50527-9) NEGATIVE NEGATIVE [facility] Zjtca9213-93-43 09:53:00* Test Item Value Reference Range Interpretation Comments Urine Color (test code = 5778-6) YELLOW YELLOW [facility] Ysjkvfq6939-11-59 09:53:00* Test Item Value Reference Range Interpretation Comments Urine Clarity (test code = 22477-7) CLEAR CLEAR [facility] Specific Szaxkvv5613-16-11 09:53:00 * Test Item Value Reference Range Interpretation Comments Urine Specific [place] (test code = 5811-5) 1.020 1.010-1.02 5 [facility] zH6369-76-96 09:53:00* Test Item Value Reference Range Interpretation Comments Urine pH (test code = 20073-9) 7 5-7 [facility] Leukocyte Mpffguej7510-90-87 09:53:00* Test Item Value Reference Range Interpretation Comments Urine Leukocyte Esterase (test code = 5799-2) NEGATIVE NEGATIVE [facility] Dacssww4078-03-18 09:53:00* Test Item Value Reference Range Interpretation Comments Urine Nitrite (test code = 43143-8) NEGATIVE NEGATIVE [facility] Undnrqc6015-99-59 09:53:00* Test Item Value Reference Range Interpretation Comments Urine Protein (test code = 5804-0) NEGATIVE NEGATIVE [facility] Glucose (UA)2018-04-24 09:53:00* Test Item Value Reference Range Interpretation Comments Urine Glucose (UA) (test code = 2349-9) NEGATIVE NEGATIVE [facility] Yurqlkw6717-23-19 09:53:00* Test Item Value Reference Range Interpretation Comments Urine Ketones (test code = 32875-7) NEGATIVE NEGATIVE [facility] Ouovfigderzg4212-94-65 09:53:00* Test Item Value Reference Range Interpretation Comments Urine Urobilinogen (test code = 58128-9) 0.2 0.2-1 [facility] Xiwqxvqpb7112-09-33 09:53:00* Test Item Value Reference Range Interpretation Comments Urine Bilirubin (test code = 1978-6) NEGATIVE NEGATIVE [facility] Uabjq6426-24-48 09:53:00* Test Item Value Reference Range Interpretation Comments Urine Blood (test code = 35729-1) NEGATIVE NEGATIVE [facility] Xeprw8710-25-51 09:53:00* Test Item Value Reference Range Interpretation Comments Urine Color (test code = 5778-6) YELLOW YELLOW [facility] Rdnzfdu9620-51-14 09:53:00* Test Item Value Reference Range Interpretation Comments Urine Clarity (test code = 91651-2) CLEAR CLEAR [facility] Specific Ciadald3423-33-43 09:53:00 * Test Item Value Reference Range Interpretation Comments Urine Specific [place] (test code = 5811-5) 1.020 1.010-1.02 5 [facility] rJ2866-01-33 09:53:00* Test Item Value Reference Range Interpretation Comments Urine pH (test code = 04237-0) 7 5-7 [facility] Leukocyte Zgyzvsiy4434-24-22 09:53:00* Test Item Value Reference Range Interpretation Comments Urine Leukocyte Esterase (test code = 5799-2) NEGATIVE NEGATIVE [facility] Kogijnt2105-57-62 09:53:00* Test Item Value Reference Range Interpretation Comments Urine Nitrite (test code = 97278-1) NEGATIVE NEGATIVE [facility] Wgbummp1957-97-55 09:53:00* Test Item Value Reference Range Interpretation Comments Urine Protein (test code = 5804-0) NEGATIVE NEGATIVE [facility] Glucose (UA)2018-04-24 09:53:00* Test Item Value Reference Range Interpretation Comments Urine Glucose (UA) (test code = 2349-9) NEGATIVE NEGATIVE [facility] Xmxcjgo9306-59-32 09:53:00* Test Item Value Reference Range Interpretation Comments Urine Ketones (test code = 91284-5) NEGATIVE NEGATIVE [facility] Ngrnibxwdtio6400-21-05 09:53:00* Test Item Value Reference Range Interpretation Comments Urine Urobilinogen (test code = 60068-2) 0.2 0.2-1 [facility] Dangcqazg7492-59-05 09:53:00* Test Item Value Reference Range Interpretation Comments Urine Bilirubin (test code = 1978-6) NEGATIVE NEGATIVE [facility] Yhumo5748-22-14 09:53:00* Test Item Value Reference Range Interpretation Comments Urine Blood (test code = 07809-2) NEGATIVE [facility]IVE [facility] Kagcb7641-42-36 10:15:00* Test Item Value Reference Range Interpretation Comments Sodium Level (test code = 2951-2) 141 136-145 [facility] Ndcsm6139-34-63 10:15:00* Test Item Value Reference Range Interpretation Comments Potassium Level (test code = 2823-3) 4.5 3.5-5.1 [facility] AllenChloride Wnsqi8710-67-40 10:15:00* Test Item Value Reference Range Interpretation Comments Chloride Level (test code = 2075-0) 106 98-107 [facility] Dioxide Gnnds5491-01-64 10:15:00* Test Item Value Reference Range Interpretation Comments Carbon Dioxide Level (test code = 2028-9) 27 22-29 [facility] AllenAnion Dlq2835-49-08 10:15:00* Test Item Value Reference Range Interpretation Comments Anion Gap (test code = 00050-1) 12.5 8-16 [facility] AllenBlood Urea Erykillw4995-77-27 10:15:00* Test Item Value Reference Range Interpretation Comments Blood Urea Nitrogen (test code = 3094-0) 20 7-26 [facility] AllenCreatinine2018-08-27 10:15:00* Test Item Value Reference Range Interpretation Comments Creatinine (test code = 2160-0) 1.19 0.72-1.25 [facility] AllenBUN/Creatinine Cravo4034-50-60 10:15:00* Test Item Value Reference Range Interpretation Comments BUN/Creatinine Ratio (test code = 3097-3) 17 - [facility] AllenEstimat Glomerular Filtration Rate 2018-04-23 10:15:00* Test Item Value Reference Range Interpretation Comments Estimat Glomerular Filtration Rate (test code = 82154-2) 60- >60 Ranges were taken from the National Kidney Disease Education Program and the [facility] literature.Reference ranges:60 or greater: Eglzbi17-52 ( for 3 consecutive months): Chronic kidney disease 15 or less: Kidney failureTexas Health AllenGlucose Gbuge5572-38-71 10:15:00* Test Item Value Reference Range Interpretation Comments Glucose Level (test code = PFC3605) 148 74-118 H [facility]Calcium Oynlr9606-43-14 10:15:00* Test Item Value Reference Range Interpretation Comments Calcium Level (test code = 92755-5) 10.1 8.4-10.2 [facility] Rqgya8610-15-69 10:15:00* Test Item Value Reference Range Interpretation Comments Sodium Level (test code = 2951-2) 141 136-145 [facility]Potassium Pwttv2507-52-11 10:15:00* Test Item Value Reference Range Interpretation Comments Potassium Level (test code = 2823-3) 4.5 3.5-5.1 [facility] AllenChloride Mtcgl9616-17-67 10:15:00* Test Item Value Reference Range Interpretation Comments Chloride Level (test code = 2075-0) 106 98-107 [facility] AllenCarbon Dioxide Nsxzs5165-37-39 10:15:00* Test Item Value Reference Range Interpretation Comments Carbon Dioxide Level (test code = 2028-9) 27 22-29 [facility] AllenAnion Dfi7032-33-88 10:15:00* Test Item Value Reference Range Interpretation Comments Anion Gap (test code = 29810-5) 12.5 8-16 [facility] AllenBlood Urea Vcillwrx2823-75-58 10:15:00* Test Item Value Reference Range Interpretation Comments Blood Urea Nitrogen (test code = 3094-0) 20 7-26 [facility] AllenCreatinine2018-08-27 10:15:00* Test Item Value Reference Range Interpretation Comments Creatinine (test code = 2160-0) 1.19 0.72-1.25 [facility] AllenBUN/Creatinine Ozyof5170-63-75 10:15:00* Test Item Value Reference Range Interpretation Comments BUN/Creatinine Ratio (test code = 3097-3) 17 6- [facility] AllenEstimat Glomerular Filtration Rate 2018-04-23 10:15:00* Test Item Value Reference Range Interpretation Comments Estimat Glomerular Filtration Rate (test code = 459061376) 60- >60 Ranges were taken from the National Kidney Disease Education Program and the [facility] literature.Reference ranges:60 or greater: Yjarxu50-46 ( for 3 consecutive months): Chronic kidney disease 15 or less: Kidney failureTexas Health AllenGlucose Rpflk1562-40-86 10:15:00* Test Item Value Reference Range Interpretation Comments Glucose Level (test code = DZO9880) 148 74-118 H [facility] AllenCalcium Lfvic2947-57-97 10:15:00* Test Item Value Reference Range Interpretation Comments Calcium Level (test code = 39637-4) 10.1 8.4-10.2 [facility] Cgloq3887-15-50 10:15:00* Test Item Value Reference Range Interpretation Comments Sodium Level (test code = 2951-2) 141 136-145 [facility] AllenPotassium Umhlw6707-08-82 10:15:00* Test Item Value Reference Range Interpretation Comments Potassium Level (test code = 2823-3) 4.5 3.5-5.1 [facility] AllenChloride Jsbnw7963-41-12 10:15:00* Test Item Value Reference Range Interpretation Comments Chloride Level (test code = 2075-0) 106 98-107 [facility] AllenCarbon Dioxide Fidxh7295-37-65 10:15:00* Test Item Value Reference Range Interpretation Comments Carbon Dioxide Level (test code = 2028-9) 27 22-29 [facility] AllenAnion Tdt7141-92-16 10:15:00* Test Item Value Reference Range Interpretation Comments Anion Gap (test code = 63143-3) 12.5 8-16 [facility] AllenBlood Urea Punxuahy7959-63-10 10:15:00* Test Item Value Reference Range Interpretation Comments Blood Urea Nitrogen (test code = 3094-0) 20 7-26 [facility] AllenCreatinine2018-08-27 10:15:00* Test Item Value Reference Range Interpretation Comments Creatinine (test code = 2160-0) 1.19 0.72-1.25 [facility] AllenBUN/Creatinine Ijyfs4091-32-57 10:15:00* Test Item Value Reference Range Interpretation Comments BUN/Creatinine Ratio (test code = 3097-3) 17 6-25 [facility] AllenEstimat Glomerular Filtration Rate 2018-04-23 10:15:00* Test Item Value Reference Range Interpretation Comments Estimat Glomerular Filtration Rate (test code = 518800303) > 60 >60 Ranges were taken from the National Kidney Disease Education Program and the [facility] literature.Reference ranges:60 or greater: Ymfjib41-70 ( for 3 consecutive months): Chronic kidney disease 15 or less: Kidney failureTexas Health AllenGlucose Mdoke8114-58-51 10:15:00* Test Item Value Reference Range Interpretation Comments Glucose Level (test code = AEZ4025) 148 74-118 H [facility] AllenCalcium Vigbl0819-10-68 10:15:00* Test Item Value Reference Range Interpretation Comments Calcium Level (test code = 95781-3) 10.1 8.4-10.2 [facility] AllenWhite Blood Edcyr7672-20-55 10:00:00* Test Item Value Reference Range Interpretation Comments White Blood Count (test code = 6690-2) 6.28 4.8-10.8 [facility] AllenRed Blood Lwobr9548-15-31 10:00:00* Test Item Value Reference Range Interpretation Comments Red Blood Count (test code = 789-8) 4.62 4.3-5.7 [facility] AllenMean Corpuscular Exdnkh7262-31-57 10:00:00* Test Item Value Reference Range Interpretation Comments Mean Corpuscular Volume (test code = 787-2) 91.6 81-99 [facility] AllenMean Corpuscular Wanrnmvjhp4067-74-69 10:00:00* Test Item Value Reference Range Interpretation Comments Mean Corpuscular Hemoglobin (test code = 785-6) 31.6 28-32 [facility] AllenMean Corpuscular Hemoglobin Concent 2018-04-23 10:00:00* Test Item Value Reference Range Interpretation Comments Mean Corpuscular Hemoglobin Concent (test code = 786-4) 34.5 31-35 [facility] AllenRed Cell Distribution Fqrbh8935-39-17 10:00:00* Test Item Value Reference Range Interpretation Comments Red Cell Distribution Width (test code = 00436-7) 12.3 11.7 -14.4 [facility] AllenPlatelet Uluzz3870-71-03 10:00:00* Test Item Value Reference Range Interpretation Comments Platelet Count (test code = 777-3) 174 140-360 [facility] AllenNeutrophils (%) (Auto)2018-04-23 10:00:00 * Test Item Value Reference Range Interpretation Comments Neutrophils (%) (Auto) (test code = 84754-1) 64.3 38.7-80.0 [facility] AllenLymphocytes (%) (Auto)2018-04-23 10:00:00 * Test Item Value Reference Range Interpretation Comments Lymphocytes (%) (Auto) (test code = 736-9) 22.1 18.0-39.1 [facility] AllenMonocytes (%) (Auto)2018-04-23 10:00:00* Test Item Value Reference Range Interpretation Comments Monocytes (%) (Auto) (test code = 5905-5) 9.6 4.4-11.3 [facility] AllenEosinophils (%) (Auto)2018-04-23 10:00:00 * Test Item Value Reference Range Interpretation Comments Eosinophils (%) (Auto) (test code = 713-8) 2.7 0.0-6.0 [facility]Basophils (%) (Auto)2018-04-23 10:00:00* Test Item Value Reference Range Interpretation Comments Basophils (%) (Auto) (test code = 706-2) 0.8 0.0-1.0 [facility] AllenIM GRANULOCYTES %2018-04-23 10:00:00* Test Item Value Reference Range Interpretation Comments IM GRANULOCYTES % (test code = IM GRANULOCYTES %) 0.5 0.0- 1.0 [facility] AllenNeutrophils # (Auto)2018-04-23 10:00:00* Test Item Value Reference Range Interpretation Comments Neutrophils # (Auto) (test code = 751-8) 4.0 2.1-6.9 [facility] AllenLymphocytes # (Auto)2018-04-23 10:00:00* Test Item Value Reference Range Interpretation Comments Lymphocytes # (Auto) (test code = 88679-0) 1.4 1.0-3.2 [facility] AllenMonocytes # (Auto)2018-04-23 10:00:00* Test Item Value Reference Range Interpretation Comments Monocytes # (Auto) (test code = 742-7) 0.6 0.2-0.8 [facility]Eosinophils # (Auto)2018-04-23 10:00:00* Test Item Value Reference Range Interpretation Comments Eosinophils # (Auto) (test code = 711-2) 0.2 0.0-0.4 [facility]Basophils # (Auto)2018-04-23 10:00:00* Test Item Value Reference Range Interpretation Comments Basophils # (Auto) (test code = 704-7) 0.1 0.0-0.1 [facility] AllenAbsolute Immature Granulocyte (auto 2018-04-23 10:00:00* Test Item Value Reference Range Interpretation Comments Absolute Immature Granulocyte (auto (brigid t code = Absolute Immature Granulocyte (auto) 0.03 0-0.1 [facility] AllenWhite Blood Yncaw7063-64-61 10:00:00* Test Item Value Reference Range Interpretation Comments White Blood Count (test code = 6690-2) 6.28 4.8-10.8 [facility] AllenRed Blood Qeixk4257-67-37 10:00:00* Test Item Value Reference Range Interpretation Comments Red Blood Count (test code = 789-8) 4.62 4.3-5.7 [facility] AllenMean Corpuscular Cqukeo9084-05-96 10:00:00* Test Item Value Reference Range Interpretation Comments Mean Corpuscular Volume (test code = 787-2) 91.6 81-99 [facility] AllenMean Corpuscular Amxuopqslc2962-90-33 10:00:00* Test Item Value Reference Range Interpretation Comments Mean Corpuscular Hemoglobin (test code = 785-6) 31.6 28-32 [facility] AllenMean Corpuscular Hemoglobin Concent 2018-04-23 10:00:00* Test Item Value Reference Range Interpretation Comments Mean Corpuscular Hemoglobin Concent (test code = 786-4) 34.5 31-35 [facility] AllenRed Cell Distribution Nwssf1264-68-54 10:00:00* Test Item Value Reference Range Interpretation Comments Red Cell Distribution Width (test code = 76419-9) 12.3 11.7 -14.4 [facility] AllenPlatelet Sjhbx2051-74-51 10:00:00* Test Item Value Reference Range Interpretation Comments Platelet Count (test code = 777-3) 174 140-360 [facility] AllenNeutrophils (%) (Auto)2018-04-23 10:00:00 * Test Item Value Reference Range Interpretation Comments Neutrophils (%) (Auto) (test code = 72275-3) 64.3 38.7-80.0 [facility] AllenLymphocytes (%) (Auto)2018-04-23 10:00:00 * Test Item Value Reference Range Interpretation Comments Lymphocytes (%) (Auto) (test code = 736-9) 22.1 18.0-39.1 [facility] AllenMonocytes (%) (Auto)2018-04-23 10:00:00* Test Item Value Reference Range Interpretation Comments Monocytes (%) (Auto) (test code = 5905-5) 9.6 4.4-11.3 [facility] AllenEosinophils (%) (Auto)2018-04-23 10:00:00 * Test Item Value Reference Range Interpretation Comments Eosinophils (%) (Auto) (test code = 713-8) 2.7 0.0-6.0 [facility] AllenBasophils (%) (Auto)2018-04-23 10:00:00* Test Item Value Reference Range Interpretation Comments Basophils (%) (Auto) (test code = 706-2) 0.8 0.0-1.0 [facility] AllenIM GRANULOCYTES %2018-04-23 10:00:00* Test Item Value Reference Range Interpretation Comments IM GRANULOCYTES % (test code = IM GRANULOCYTES %) 0.5 0.0- 1.0 [facility] AllenNeutrophils # (Auto)2018-04-23 10:00:00* Test Item Value Reference Range Interpretation Comments Neutrophils # (Auto) (test code = 751-8) 4.0 2.1-6.9 [facility] AllenLymphocytes # (Auto)2018-04-23 10:00:00* Test Item Value Reference Range Interpretation Comments Lymphocytes # (Auto) (test code = 90957-5) 1.4 1.0-3.2 [facility] AllenMonocytes # (Auto)2018-04-23 10:00:00* Test Item Value Reference Range Interpretation Comments Monocytes # (Auto) (test code = 742-7) 0.6 0.2-0.8 [facility] AllenEosinophils # (Auto)2018-04-23 10:00:00* Test Item Value Reference Range Interpretation Comments Eosinophils # (Auto) (test code = 711-2) 0.2 0.0-0.4 [facility]Basophils # (Auto)2018-04-23 10:00:00* Test Item Value Reference Range Interpretation Comments Basophils # (Auto) (test code = 704-7) 0.1 0.0-0.1 [facility] AllenAbsolute Immature Granulocyte (auto 2018-04-23 10:00:00* Test Item Value Reference Range Interpretation Comments Absolute Immature Granulocyte (auto (brigid t code = Absolute Immature Granulocyte (auto) 0.03 0-0.1 [facility] AllenWhite Blood Xiguf5440-21-52 10:00:00* Test Item Value Reference Range Interpretation Comments White Blood Count (test code = 6690-2) 6.28 4.8-10.8 [facility] AllenRed Blood Bmkcd3151-03-09 10:00:00* Test Item Value Reference Range Interpretation Comments Red Blood Count (test code = 789-8) 4.62 4.3-5.7 [facility] AllenMean Corpuscular Rzmslp9772-71-05 10:00:00* Test Item Value Reference Range Interpretation Comments Mean Corpuscular Volume (test code = 787-2) 91.6 81-99 [facility] AllenMean Corpuscular Upnushmfij1502-70-15 10:00:00* Test Item Value Reference Range Interpretation Comments Mean Corpuscular Hemoglobin (test code = 785-6) 31.6 28-32 [facility] AllenMean Corpuscular Hemoglobin Concent 2018-04-23 10:00:00* Test Item Value Reference Range Interpretation Comments Mean Corpuscular Hemoglobin Concent (test code = 786-4) 34.5 31-35 [facility] AllenRed Cell Distribution Pnifn5109-46-23 10:00:00* Test Item Value Reference Range Interpretation Comments Red Cell Distribution Width (test code = 74725-6) 12.3 11.7 -14.4 [facility] AllenPlatelet Wikzl4579-69-76 10:00:00* Test Item Value Reference Range Interpretation Comments Platelet Count (test code = 777-3) 174 140-360 [facility] AllenNeutrophils (%) (Auto)2018-04-23 10:00:00 * Test Item Value Reference Range Interpretation Comments Neutrophils (%) (Auto) (test code = 20107-1) 64.3 38.7-80.0 [facility] AllenLymphocytes (%) (Auto)2018-04-23 10:00:00 * Test Item Value Reference Range Interpretation Comments Lymphocytes (%) (Auto) (test code = 736-9) 22.1 18.0-39.1 [facility] AllenMonocytes (%) (Auto)2018-04-23 10:00:00* Test Item Value Reference Range Interpretation Comments Monocytes (%) (Auto) (test code = 5905-5) 9.6 4.4-11.3 [facility] AllenEosinophils (%) (Auto)2018-04-23 10:00:00 * Test Item Value Reference Range Interpretation Comments Eosinophils (%) (Auto) (test code = 713-8) 2.7 0.0-6.0 [facility] AllenBasophils (%) (Auto)2018-04-23 10:00:00* Test Item Value Reference Range Interpretation Comments Basophils (%) (Auto) (test code = 706-2) 0.8 0.0-1.0 [facility] AllenIM GRANULOCYTES %2018-04-23 10:00:00* Test Item Value Reference Range Interpretation Comments IM GRANULOCYTES % (test code = IM GRANULOCYTES %) 0.5 0.0- 1.0 [facility] AllenNeutrophils # (Auto)2018-04-23 10:00:00* Test Item Value Reference Range Interpretation Comments Neutrophils # (Auto) (test code = 751-8) 4.0 2.1-6.9 [facility] AllenLymphocytes # (Auto)2018-04-23 10:00:00* Test Item Value Reference Range Interpretation Comments Lymphocytes # (Auto) (test code = 38203-0) 1.4 1.0-3.2 [facility] AllenMonocytes # (Auto)2018-04-23 10:00:00* Test Item Value Reference Range Interpretation Comments Monocytes # (Auto) (test code = 742-7) 0.6 0.2-0.8 [facility] AllenEosinophils # (Auto)2018-04-23 10:00:00* Test Item Value Reference Range Interpretation Comments Eosinophils # (Auto) (test code = 711-2) 0.2 0.0-0.4 [facility] AllenBasophils # (Auto)2018-04-23 10:00:00* Test Item Value Reference Range Interpretation Comments Basophils # (Auto) (test code = 704-7) 0.1 0.0-0.1 [facility] AllenAbsolute Immature Granulocyte (auto 2018-04-23 10:00:00* Test Item Value Reference Range Interpretation Comments Absolute Immature Granulocyte (auto (brigid t code = Absolute Immature Granulocyte (auto) 0.03 0-0.1 [facility] AllenCHEST 2 JJIDY7237-73-03 11:58:00 [place] [address] Patient Name: VEE LÓPEZ MR #: [id number] : 1950 Age/Sex: 67/M Req #: [id number] Adm Physician: Ordered by: RYAN VARGAS MD Report #: [id number] Location: OR Room/Bed: Procedure: [id number] DX/CHEST 2 VIEWS Exam Date: Exam Time: 1145 REPORT STATUS: Signed EXAMINATION: CHEST 2 VIEWS INDICATION: COMPARISON: None FINDINGS: PA and lateral views TUBES and LINES: None. LUNGS: The lungs are hyperinflated. Minimal atelectasis in both lung bases. There is no evidence of pneumonia or pulmonary edema. PLEURA: No pleural effusion or pneumothorax. HEART AND MEDIASTINUM: The cardiomediastinal silhouette is unremarkable. BONES AND SOFT TISSUES: Minimal decreasing he ight of a lower thoracic vertebral body likely degenerative. Mild multilevel d egenerative changes of the thoracic spine. Soft tissues are unremarkable. UPPER ABDOMEN: No free air under the diaphragm. IMPRESSION: No acute thoracic abnormality. Minimal atelectasis in both lung bases. Clair d by: Dr. Khadijah Castro M.D. on 04/20/2018 11:59 AM Dictated By : KHADIJAH CASTRO MD 1152 Transcribed By: GERALD on 04/20/18 1159 COPY TO: RYAN LAWRENCE MD
[2020-04-21] MEDS ORDERED: HYDROCODONE/APAP 5MG-325MG TAB ONE (14:31)
[2020-04-21 15:12] VITALS: BP 117/64
--- NOTE | 2020-04-21 15:14 | NUR ---
Received report from SENIOR BUSINESS DEVELOPMENT ANALYSTTelma at 1430. Patient arrived to room at 1500. Patient was assessed has a 20g in right hand, right knee immobilizer, and daniel bandage in place. Patient was oriented to room, procedures, and plan of care. Patient had no other issues at this time. Patient was given call mulligan and water all within reach.
[2020-04-21] MEDS ORDERED: KETOROLAC TROMETHAMINE 30 MG/ML VIAL IV PRN (16:00)
[2020-04-21 16:26] VITALS: BP 142/64
[2020-04-21] MEDS: ASPIRIN 325 MG TAB PO SCH (16:48)
[2020-04-21] MEDS: CELECOXIB 100 MG CAP PO SCH (16:49)
[2020-04-21] MEDS: SODIUM CHLORIDE 0.9% 1000ML 1,000 ML IV SCH (17:42)
[2020-04-21 17:53] LABS: BASOPHILS % 0.2 % (0.0-1.0); HEMOGLOBIN 11.1 g/dL (14.0-18.0); LYMPHOCYTES # (AUTO) 0.6 (1.0-3.2); LYMPHOCYTES % 4.7 % (18.0-39.1); MEAN CORPUSCULAR HEMOGLOBIN 29.4 pg (28-32); MEAN CORPUSCULAR HGB CONC 31.7 g/dL (31-35); MEAN CORPUSCULAR VOLUME 92.8 fL (81-99); MONOCYTES # (AUTO) 0.4 (0.2-0.8); MONOCYTES % 2.7 % (4.4-11.3); NEUTROPHILS # (AUTO) 11.8 (2.1-6.9); NEUTROPHILS % 91.8 % (38.7-80.0); PLATELET COUNT 355 x10e3/uL (140-360); RED BLOOD COUNT 3.77 x10e6/uL (4.3-5.7)
[2020-04-21 18:08] LABS: ANION GAP 17.7 mmol/L (8-16); CALCIUM 9.1 mg/dL (8.4-10.2); CREATININE, SERUM 1.53 mg/dL (0.72-1.25); POTASSIUM 4.7 mmol/L (3.5-5.1)
[2020-04-21] MEDS ORDERED: FENTANYL CITRATE/PF 100MCG/2 ML INJ ONE (18:16)
[2020-04-21] MEDS ORDERED: MIDAZOLAM HCL 2 MG/2 ML VIAL ONE (18:16)
--- NOTE | 2020-04-21 18:26 | Consultation ---
DATE OF CONSULTATION: 04/21/2020 REASON FOR CONSULT: Consultation medical management. HISTORY OF PRESENT ILLNESS: This is a 69-year-old white man, who was admitted to [facility] with diagnosis of infected right knee joint. Today, the patient underwent successful right knee joint hardware removal with a temporary placement of antibiotic laden prosthesis. This surgery was performed by Dr. Chaz William. The patient states his pain is well controlled. The patient apparently was found to have infected right knee joint prior to this admission and was on long-term oral doxycycline antibiotic therapy. On April 16, 2020, the patient had a BUN, creatinine 19 and 1.42 respectively. The patient's white blood cell count prior to admission was 11,900 with 74% segmented neutrophils. Of note, the patient's COVID-19 infection was negative on April 16, 2020. REVIEW OF SYSTEMS: GENERAL: Weight is stable. No fever or chills. HEENT: No headaches, no vision changes. CARDIOVASCULAR/RESPIRATORY: No chest pain, shortness of breath or cough. He does snore. GI: No nausea, vomiting, diarrhea or constipation. : Palm catheter is removed. NEUROMUSCULAR: The patient states his right knee joint pain is controlled. ALLERGIES: 1. PENICILLIN. 2. PEANUTS. 3. WHEAT. FAMILY HISTORY: Noncontributory. SOCIAL HISTORY: He is , lives with his . He just retired last month. No history of tobacco or alcohol use. PAST MEDICAL HISTORY: 1. Right knee joint hardware infection. 2. Obesity BMI 39. 3. Hypertensive heart disease. 4. Hyperlipidemia. SURGICAL HISTORY: 1. 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 2. Right total knee replacement in July 2018 (initial surgery). 3. Vasectomy. 4. Right knee joint hardware removal with temporary antibiotic laden prosthesis today. MEDICATIONS: 1. Amlodipine 10 mg at bedtime. 2. Aspirin 81 mg daily. 3. Carvedilol 25 mg b.i.d. 4. Vitamin D3 3000 units daily. 5. Doxazosin 4 mg at bedtime. 6. Doxycycline 100 mg b.i.d. 7. Glucosamine 750 mg daily. 8. Krill oil 1000 mg daily. 9. Losartan/hydrochlorothiazide 100/12.5 once daily. 10. Potassium chloride 10 mEq b.i.d. 11. Rosuvastatin 10 mg at bedtime. 12. Coenzyme Q10 400 mg daily. PHYSICAL EXAMINATION: GENERAL: He is awake, alert, fluent, in distress, very pleasant and cooperative. VITAL SIGNS: Blood pressure is 142/64, pulse 84, respirations 18, temperature 97.7, oxygen 95% on 2 L oxygen. Height is 5 feet 3 inches, weight is 235 pounds, BMI is 40. INTEGUMENT: Skin is warm and dry. No pallor, jaundice, or diaphoresis. HEENT: Anicteric sclerae. Moist mucous membranes. NECK: Supple. CARDIOVASCULAR: Distant heart sounds. Regular rhythm. LUNGS: No rales, no rhonchi. ABDOMEN: Obese, benign. EXTREMITIES: The patient's left right knee joint is currently dressed. He is wearing compression stockings on left lower leg. NEUROLOGIC: Intact. DIAGNOSES: 1. Status post right knee infected hardware removal with temporary antibiotic laden prosthesis placement. 2. Infected right knee joint. 3. Hypertensive heart disease. 4. Extreme obesity, BMI 40. 5. Stage 3 chronic kidney disease. 6. Obstructive sleep apnea, likely. PLAN: 1. We will order a peripherally inserted central catheter for long-term intravenous antibiotic therapy. 2. Continue intravenous antibiotic therapy. 3. Consult Infectious Disease specialist. 4. Follow renal function and electrolytes in the morning. 5. We will start intravenous fluids since he may have acute on chronic renal insufficiency. 6. Encourage incentive spirometer usage to prevent atelectasis. 7. Mobilize with therapy. 8. Pain control. 9. Resume home medications. I spent 45 minutes in care of the patient. MD GANGA Link/EAMON /[id number] MTDChapincito
--- NOTE | 2020-04-21 19:00 | NUR ---
RECEIVED BEDSIDE SHIFT REPORT FROM PREVIOUS NURSE. CALL LIGHT WITHIN REACH. PATIENT IN BED.
[2020-04-21] MEDS ORDERED: GLYCOPYRROLATE INJ 0.2 MG/ML VIAL ONE (19:27)
[2020-04-21] MEDS ORDERED: LIDOCAINE HCL 2% LOCAL INJ 5 ML SDV VIAL INJ ONE (19:27)
[2020-04-21] MEDS ORDERED: ONDANSETRON HCL INJ 2MG/ML 2ML 2 MG/ML VIAL ONE (19:27)
[2020-04-21] MEDS ORDERED: NEOSTIGMINE 1 MG/ML 10ML VIAL ONE (19:27)
[2020-04-21] MEDS ORDERED: DEXAMETHASONE SOD PHOS INJ 4 MG/ML VIAL ONE (19:27)
[2020-04-21] MEDS ORDERED: SEVOFLURANE INHAL SOLN 250 ML PEN BTL ONE (19:27)
[2020-04-21] MEDS ORDERED: PROPOFOL IV EMULSION 10 MG/ML 20 ML VIAL ONE (19:27)
[2020-04-21] MEDS ORDERED: ROCURONIUM BROMIDE 10 MG/ML 5ML VIAL IV ONE (19:27)
[2020-04-21] MEDS ORDERED: LIDOCAINE 2%/ EPINEPHRINE 20ML MDV ONE (19:58)
[2020-04-21] MEDS ORDERED: ROPIVACAINE 0.5% 5 MG/ML 30 ML SDV ONE (19:58)
[2020-04-21 20:00] VITALS: BP 142/73
[2020-04-21 20:07] VITALS: BP 142/64
[2020-04-21 20:20] VITALS: BP 142/73
[2020-04-21] MEDS ORDERED: SIMVASTATIN 40 MG TAB PO SCH (21:00)
[2020-04-21] MEDS ORDERED: DOXAZOSIN MESYLATE 2 MG TAB PO SCH (21:00)
[2020-04-21] MEDS ORDERED: ZOLPIDEM TARTRATE 5 MG TAB PO PRN (21:00)
[2020-04-21] MEDS ORDERED: SIMVASTATIN 20 MG TAB PO SCH (21:00)
[2020-04-21] MEDS ORDERED: AMLODIPINE BESYLATE 10 MG TAB PO SCH (21:00)
--- NOTE | 2020-04-21 21:46 | Diagnostic Imaging Report ---
EXAMINATION: CHEST XRAY LINE PLACEMENT INDICATION: PICC line placement. COMPARISON: Chest x-ray on 04/16/2020. FINDINGS: TUBES and LINES: There has been interval placement of right PICC which terminates at the distal SVC. LUNGS: Normal lung volumes. There are prominent interstitial lung markings. PLEURA: No pleural effusion or pneumothorax. HEART AND MEDIASTINUM: The cardiomediastinal silhouette is unremarkable. BONES AND SOFT TISSUES: No acute osseous lesion. Soft tissues are unremarkable. UPPER ABDOMEN: No free air under the diaphragm. IMPRESSION: 1. Interval placement of right PICC which terminates at the distal SVC. 2. Prominent interstitial lung markings likely due to bronchovascular crowding or mild pulmonary edema. Signed by: Suzanne Bravo MD on 04/21/2020 9:43 PM
--- NOTE | 2020-04-21 22:42 | Operative Report ---
DATE OF PROCEDURE: 04/21/2020 SURGEON: Chaz William MD PIN PUSHER: Christopher Pinon, certified PA. 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 PROCEDURE: Right knee irrigation and sharp debridement, total synovectomy, removal of knee prosthesis, placement of temporary antibiotic prosthesis. INDICATIONS: The patient is a 69-year-old gentleman, who is approximately 18 months status post a right total knee replacement. He was recently referred to me with concerns of an infected right total knee replacement. He was previously aspirated and noted to have methicillin sensitive Staph aureus. The findings and options have been discussed. We plan on a resection arthroplasty with placement of antibiotic-laden prosthesis. The risks and benefits were explained. The success rates were discussed. The need for a secondary reimplantation surgery was explained. All of his questions were answered. He stated he understood and wished to proceed. PROCEDURE IN DETAIL: The patient was brought to the operating room and placed under general anesthetic. He received a regional block in the holding area. He received tranexamic acid. Because we already had cultures, he was given antibiotics. His right lower extremity was prepped and draped in a sterile manner. A preoperative time-out was performed. The extremity was exsanguinated and a proximal tourniquet was inflated to 350 mmHg. Some of the previous incision was utilized. We did not need to go quite as extensively. Dense subcutaneous scar tissue was encountered. Multiple Ethibond stitches were encountered both on the medial and lateral side of the knee. These were carefully exposed and removed. A medial parapatellar arthrotomy was performed. Seropurulent material was evacuated from the knee. Extensive inflamed synovium was encountered. A subtotal synovectomy was performed. Cultures were sent with synovial tissue. Soft tissue releases were further performed to bring the knee up into flexion. It appeared that the knee had previously been treated with a lateral retinacular release that was then repaired with Ethibond stitches. The lateral release was necessary to kaitlyn the patella. The patellar component was removed with osteotomes. This was challenging. There was a surprisingly fixed cement mantle. The cement was then all carefully removed. The bone surface was debrided. This did not appear to have any signs of infection. The tibial insert was inspected. This was surprisingly thick for a primary knee. This was noted to be a 20 mm tibial insert that required screw fixation. The screw was removed and the tibial insert was removed. The tibial component in the posterior aspect of the knee did demonstrate fibro purulent material. Sharp osteotomes were used to separate the prosthesis from the cement mantle. The prosthesis was removed. With this left, a large distal cement plug with a tapered stem in the canal. A thick cement mantle was also encountered. This was carefully removed with osteotomes, curette, and graspers. The distal cement mantle and stem were challenging to remove. The drill holes were placed circumferentially around the stem. The previous screw was then seated into the stem. An extraction device was successful and removing this. There was a remaining cement plug that extended almost a [id number]-half to 2 cm down the canal. This was ultimately removed with a drill. All of the bone surfaces were carefully debrided and irrigated with a shower tip pulsatile lavage. The femoral component was then carefully removed with osteotomes and a bone punch. Care was taken to minimize bone loss. The majority of the cement mantle with the prosthesis. This was also thoroughly debrided with a shower tip pulsatile lavage. After removal of the prosthesis and its associated 20 mm tibial insert, there was a fairly significant bone loss. We used a prefabricated [employer] osteo remedy total knee molds. A large femoral mold was used. A medium-sized tibial mold with an additional 10 mm augmentation was used due to the flexion and extension gap. Two mixes of bone cement with 3 g of vancomycin and 3 g of tobramycin in each cement were prepared on the back table at intervals. This allowed me to cement the tibial mold into the canal with a large cement stem. Once this had completely cured, the femoral cement was on its way to getting hard. The femoral component was then cemented into place. This worked out quite nicely. A small amount of cement was placed onto the bone surface of the patella. The wound was further irrigated. The arthrotomy and the lateral retinacular release were then reapproximated with interrupted #1 Ethibond stitches. The skin was closed with subcuticular Vicryl and maday. A sterile bandage and a knee immobilizer were applied. The patient was extubated and transported to the recovery room in stable condition. Blood loss was minimal. Tourniquet time approach 2 hours. All needle and sponge counts were correct. Chaz William MD DR/EAMON /[id number]
[2020-04-22] VITALS: BP 123/68
[2020-04-22] MEDS: VANCOMYCIN 1GM/NS 250 ML 250 ML IV SCH (00:03)
[2020-04-22] MEDS: SODIUM CHLORIDE 0.9% 1000ML 1,000 ML IV SCH ×2 (03:45→14:43)
[2020-04-22 04:00] VITALS: BP 136/74
[2020-04-22 05:02] LABS: BASOPHILS % 0.2 % (0.0-1.0); HEMATOCRIT 32.5 % (38.2-49.6); HEMOGLOBIN 10.3 g/dL (14.0-18.0); LYMPHOCYTES # (AUTO) 0.9 (1.0-3.2); MEAN CORPUSCULAR HEMOGLOBIN 30.4 pg (28-32); MEAN CORPUSCULAR HGB CONC 31.7 g/dL (31-35); MEAN CORPUSCULAR VOLUME 95.9 fL (81-99); MONOCYTES % 7.2 % (4.4-11.3); NEUTROPHILS # (AUTO) 11.3 (2.1-6.9); NEUTROPHILS % 85.1 % (38.7-80.0); PLATELET COUNT 330 x10e3/uL (140-360); RED BLOOD COUNT 3.39 x10e6/uL (4.3-5.7); RED CELL DISTRIBUTION WIDTH 13.1 % (11.7-14.4)
[2020-04-22 05:30] LABS: ALBUMIN 2.3 g/dL (3.5-5.0); ALBUMIN/GLOBULIN RATIO 0.5 (0.8-2.0); ANION GAP 16.1 mmol/L (8-16); CALCIUM 8.6 mg/dL (8.4-10.2); CREATININE, SERUM 1.47 mg/dL (0.72-1.25); POTASSIUM 4.1 mmol/L (3.5-5.1)
--- NOTE | 2020-04-22 07:14 | NUR ---
GAVE BEDSIDE SHIFT REPORT TO ONCOMING NURSE. CALL LIGHT WITHIN REACH. PATIENT IN BED. HOURLY ROUNDING PERFORMED.
--- NOTE | 2020-04-22 07:59 | Progress Note ---
DATE: 04/22/2020 CHIEF COMPLAINT/HISTORY OF PRESENT ILLNESS: This is a 69-year-old white man, who yesterday, Tuesday, April 21, 2020 underwent right knee joint irrigation and drainage with synovectomy and removal of infected prosthesis and implant. During this procedure, he underwent temporary knee replacement with antibiotic laden prosthesis placement. The patient tolerated the surgery quite well. The patient states he did ambulate yesterday after surgery with therapy. The patient states his pain is controlled. The patient denies any fever or chills. Today's white blood cell count 13,200 with 85% segmented neutrophils. The patient's hemoglobin is 10.3 g/dL. The patient's BUN and creatinine are 25 and 1.47 respectively. The patient's AST and ALT were 29 and 59 respectively. The patient also had a peripherally inserted central catheter placed yesterday since he will require outpatient intravenous antibiotic therapy for approximately six weeks. Infectious disease specialist, namely, Dr. Sharif was consulted. REVIEW OF SYSTEMS: As per HPI. PHYSICAL EXAMINATION: GENERAL: He is awake, alert, and fully oriented, very pleasant on exam. VITAL SIGNS: Blood pressure is 136/34, pulse 74, respiratory rate 18, temperature 97.6, and oxygen saturation 99% on 2 L oxygen. INTEGUMENT: Skin is warm and dry. No pallor, jaundice, diaphoresis. HEENT: Anterior sclerae with moist mucous membranes. NECK: Supple. CARDIOVASCULAR: Distant heart sounds. Regular rate and rhythm. LUNGS: No rales, no rhonchi, no wheezes. ABDOMEN: Obese, benign. EXTREMITIES: The patient's right knee is currently dressed. No edema in legs. NEUROLOGIC: Intact. DIAGNOSES: 1. Status post infected right knee prosthesis removal with placement of temporary antibiotic prosthesis. 2. Hypertensive heart disease. 3. Extreme obesity, BMI 40. 4. Stated stage 3 chronic kidney disease. 5. Obstructive sleep apnea, likely. PLAN: 1. We will order mupirocin 2% ointment, the patient applied to bilateral nostrils twice a day for 7 days. 2. We will arrange outpatient intravenous antibiotic therapy for approximately 4 to 6 weeks. 3. We will follow Infectious Disease specialist recommendations. 4. Encourage continued incentive spirometer usage to prevent atelectasis. 5. Mobilize therapy. 6. Pain control. 7. Blood pressure control. I spent 35 minutes in the care of this patient. MD GANGA Link/EAMON /[id number] MTDChapincito
[2020-04-22 08:03] VITALS: BP 142/70
[2020-04-22] MEDS ORDERED: LOSARTAN POTASSIUM 100 MG TAB PO SCH (09:00)
[2020-04-22] MEDS ORDERED: HYDROCHLOROTHIAZIDE 25 MG TAB PO SCH (09:00)
[2020-04-22] MEDS: CELECOXIB 100 MG CAP PO SCH (09:00)
[2020-04-22] MEDS ORDERED: CARVEDILOL 12.5 MG TAB PO SCH (09:00)
[2020-04-22] MEDS ORDERED: NON-FORMULARY MEDICATION (Losartan/Hydrochlorothiazide (Losartan-Hctz 100-25 Mg Tab) 1 TAB PO SCH (09:00)
[2020-04-22 09:07] VITALS: BP 142/70
[2020-04-22] MEDS: ASPIRIN 325 MG TAB PO SCH (09:15)
--- NOTE | 2020-04-22 11:36 | NUR ---
DR HUIZAR HERE HE IS UNABLE TO DO PT'S ABX IN HIS OFFICE SPOKE WITH MAGNO SIDHU AT [phone]; THEY ARE IN NETWORK WITH [facility] CHOICE LETTER SIGNED BY PT FOR [facility] PLACED ON CHART; COPY TO PT IMM EXPLAINED TO PT, SIGNED BY PT AND PLACED ON CHART COPY TO PT IN CARE TRANSITIONS FOLDER ORDERS FOR DAPTOMYCIN 500MG IV Q 48 HRS X 6 WEEKS WITH [facility] CONFIRMED ADDRESS AND PHONE NUMBER WITH PT CORRECT [phone]; CONFIRMATION REC'D REQUESTS TO EXPEDITE PT IS DISCHARGED TODAY AFTER ARRANGEMENTS MADE
[2020-04-22] MEDS ORDERED: DAPTOMYCIN 500mg 10ML 500 MG in SODIUM CHLORIDE 0.9% 100 ML IV SCH ×2 (12:00→13:00)
[2020-04-22] MEDS ORDERED: ACETAMINOPHEN 1000 MG/100 ML IV PRN (12:45)
--- NOTE | 2020-04-22 12:57 | NUR ---
PT HAS RW AT HOME HOME HEALTH BEING ARRANGED FOR IV ABX AND HOME HEALTH SNE AND PT/OT EVAL BY [facility]
--- NOTE | 2020-04-22 13:13 | NUR ---
infectious disease consultation Patient seen and examined chart reviewed and discussed with medical team Patient is currently alert oriented he has no complaints I discussed with him the finding HISTORY OF PRESENT ILLNESS: This is a 69-year-old white man, who was admitted to [facility] with diagnosis of infected right knee joint. Today, the patient underwent successful right knee joint hardware removal with a temporary placement of antibiotic laden prosthesis. This surgery was performed by Dr. Chaz William. The patient states his pain is well controlled. The patient apparently was found to have infected right knee joint prior to this admission and was on long-term oral doxycycline antibiotic therapy. On April 16, 2020, the patient had a BUN, creatinine 19 and 1.42 respectively. The patient's white blood cell count prior to admission was 11,900 with 74% segmented neutrophils. Of note, the patient's COVID-19 infection was negative on April 16, 2020. cultures and Gram stain still pending the Gram stain did not show any pathogen REVIEW OF SYSTEMS:at the present time the patient is doing very well except for the knee pain he denies any symptoms GENERAL: Weight is stable. No fever or chills. HEENT: No headaches, no vision changes. CARDIOVASCULAR/RESPIRATORY: No chest pain, shortness of breath or cough. He does snore. GI: No nausea, vomiting, diarrhea or constipation. : Palm catheter is removed. NEUROMUSCULAR: The patient states his right knee joint pain is controlled. ALLERGIES: 1. PENICILLIN. 2. PEANUTS. 3. WHEAT. FAMILY HISTORY: Noncontributory. SOCIAL HISTORY: He is , lives with his . He just retired last month. No history of tobacco or alcohol use. PAST MEDICAL HISTORY: 1. Right knee joint hardware infection. 2. Obesity BMI 39. 3. Hypertensive heart disease. 4. Hyperlipidemia. SURGICAL HISTORY: 1. 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 2. Right total knee replacement in July 2018 (initial surgery). 3. Vasectomy. 4. Right knee joint hardware removal with temporary antibiotic laden prosthesis today. MEDICATIONS: 1. Amlodipine 10 mg at bedtime. 2. Aspirin 81 mg daily. 3. Carvedilol 25 mg b.i.d. 4. Vitamin D3 3000 units daily. 5. Doxazosin 4 mg at bedtime. 6. Doxycycline 100 mg b.i.d. 7. Glucosamine 750 mg daily. 8. Krill oil 1000 mg daily. 9. Losartan/hydrochlorothiazide 100/12.5 once daily. 10. Potassium chloride 10 mEq b.i.d. 11. Rosuvastatin 10 mg at bedtime. 12. Coenzyme Q10 400 mg daily. PHYSICAL EXAMINATION: GENERAL: He is awake, alert, fluent, in distress, very pleasant and cooperative. vitals are stable afebrile VITAL SIGNS: Blood pressure is 142/64, pulse 84, respirations 18, temperature 97.7, oxygen 95% on 2 L oxygen. Height is 5 feet 3 inches, weight is 235 pounds, BMI is 40. INTEGUMENT: Skin is warm and dry. No pallor, jaundice, or diaphoresis. HEENT: Anicteric sclerae. Moist mucous membranes. NECK: Supple. CARDIOVASCULAR: Distant heart sounds. Regular rhythm. LUNGS: No rales, no rhonchi. ABDOMEN: Obese, benign. EXTREMITIES: The patient's left right knee joint is currently dressed. He is wearing compression stockings on left lower leg. NEUROLOGIC: Intact. DIAGNOSES: 1. Status post right knee infected hardware removal with temporary antibiotic laden prosthesis placement. recommend 6 weeks of IV antibiotic treatment with him and daptomycin 500 mg IV piggyback every 48 hours obtain weekly CBC weekly chemistry panel weekly CK discussed with the patient discussed with the case management. Would need a PICC line. Chronic kidney disease 2. Infected right knee joint. 3. Hypertensive heart disease. 4. Extreme obesity, BMI 40. 5. Stage 3 chronic kidney disease. 6. Obstructive sleep apnea, likely.
[2020-04-22 13:44] VITALS: BP 133/68
== END 2020-04-22 15:25 | disposition home or self-care (01) | DRG 467 ==
LOC: OR 08:08 → PACU V 12:35 → MED/SURG 15:14
PROVIDERS: ADMIT Specialist; ATTEND Specialist
PROC: 0SPC0JZ Removal of Synthetic Substitute from Right Knee Joint, Open Approach (ICD-10-PCS; 2020-04-21)
PROC: 0SRC0J9 Replacement of Right Knee Joint with Synthetic Substitute, Cemented, Open Approach (ICD-10-PCS; 2020-04-21)
PROC: 0SBC0ZZ Excision of Right Knee Joint, Open Approach (ICD-10-PCS; principal; 2020-04-21 10:30)
DX: T84.53XA Infection and inflammatory reaction due to internal right knee prosthesis, initial encounter (principal); Z68.41 Body mass index [BMI] 40.0-44.9, adult; I13.10 Hypertensive heart and chronic kidney disease without heart failure, with stage 1 through stage 4 chronic kidney disease, or unspecified chronic kidney disease; N18.3 Chronic kidney disease, stage 3 (moderate); E78.5 Hyperlipidemia, unspecified; E66.01 Morbid (severe) obesity due to excess calories; Z11.59 Encounter for screening for other viral diseases; G47.33 Obstructive sleep apnea (adult) (pediatric)
CPT/HCPCS: 36415; 36569; 71045; 71046; 80048; 80053; 85025; 86850; 86900; 86920; 87071; 87075; 87186; 87205; 93005; C1713; C1776; J0171; J1100; J1170; J1885; J2001; J2250; J2405; J2710; J2795; J3010; J3370; J7030; J7040; J7050; U0002

== ENCOUNTER 2020-08-04 08:49 | Inpatient (IN) | payer MEDICARE, OTHER ==
[~2020-08-04] VITALS: Ht 162.6 cm; Wt 104.3 kg
[~2020-08-04 08:49] MED LIST changes: +SODIUM CHLORIDE 0.9% 500ML 500 ML ONE; -TOBRAMYCIN 1.2GM BULK BOTTLE ONE; +TRANEXAMIC ACID 1,000 MG/10 ML ML ONE; -VANCOMYCIN HCL 1 GM VIAL ONE; +VANCOMYCIN HCL 1,000 MG ONE
[2020-08-04] MEDS ORDERED: CELECOXIB 200 MG CAP ONE (09:28)
[2020-08-04] MEDS ORDERED: VANCOMYCIN 1GM/NS 250 ML 250 ML ONE (09:28)
[2020-08-04] MEDS ORDERED: GABAPENTIN 300 MG CAP ONE (09:28)
[2020-08-04] MEDS ORDERED: DEXAMETHASONE SOD PHOS 10 MG/1 ML VIAL ONE (09:29)
[2020-08-04] MEDS ORDERED: KETOROLAC TROMETHAMINE 30 MG/ML VIAL IV PRN (12:15)
[2020-08-04] MEDS ORDERED: ONDANSETRON HCL INJ 2MG/ML 2ML 2 MG/ML VIAL IV PRN (12:15)
[2020-08-04] MEDS ORDERED: HYDROCODONE/APAP 7.5MG-325MG 1 EA TAB PO PRN (12:15)
[2020-08-04] MEDS ORDERED: DOCUSATE SODIUM 100 MG CAP PO PRN (12:15)
[2020-08-04] MEDS ORDERED: DIPHENHYDRAMINE HCL INJ 50 MG/ML VIAL IV PRN (12:15)
[2020-08-04] MEDS ORDERED: PROPOFOL IV EMULSION 10 MG/ML 20 ML VIAL ONE (12:25)
[2020-08-04] MEDS ORDERED: EPHEDRINE SULFATE INJ 50 MG/ML VIAL ONE (12:25)
[2020-08-04] MEDS ORDERED: SEVOFLURANE INHAL SOLN 250 ML PEN BTL ONE (12:25)
[2020-08-04] MEDS ORDERED: LIDOCAINE HCL 2% LOCAL INJ 5 ML SDV VIAL INJ ONE (12:25)
[2020-08-04] MEDS ORDERED: ONDANSETRON HCL INJ 2MG/ML 2ML 2 MG/ML VIAL ONE (12:25)
[2020-08-04] MEDS ORDERED: DEXAMETHASONE SOD PHOS INJ 4 MG/ML VIAL ONE (12:25)
[2020-08-04] MEDS ORDERED: ROPIVACAINE 0.5% 5 MG/ML 30 ML SDV ONE (12:31)
[2020-08-04] MEDS ORDERED: MIDAZOLAM HCL 2 MG/2 ML VIAL ONE (12:38)
[2020-08-04] MEDS ORDERED: FENTANYL CITRATE/PF 100MCG/2 ML INJ ONE (12:38)
[2020-08-04 15:36] VITALS: BP 124/63
[2020-08-04 16:20] VITALS: BP 124/63
[2020-08-04] MEDS: ASPIRIN 325 MG TAB PO SCH (16:46)
[2020-08-04] MEDS: SODIUM CHLORIDE 0.9% 1000ML 1,000 ML IV SCH (16:46)
[2020-08-04] MEDS: CELECOXIB 200 MG CAP PO SCH (16:46)
[2020-08-04] MEDS: HYDROCODONE/APAP 5MG-325MG TAB PO PRN ×2 (16:55→21:14)
[2020-08-04] MEDS ORDERED: ACETAMINOPHEN 1000 MG/100 ML IV PRN (17:00)
[2020-08-04 20:00] VITALS: BP 120/67
[2020-08-04] MEDS: VANCOMYCIN 1GM/NS 250 ML 250 ML IV SCH (20:08)
[2020-08-04] MEDS ORDERED: AMLODIPINE BESYLATE 10 MG TAB PO SCH (21:00)
[2020-08-04] MEDS ORDERED: SIMVASTATIN 40 MG TAB PO SCH (21:00)
[2020-08-04] MEDS ORDERED: DOXAZOSIN MESYLATE 2 MG TAB PO SCH (21:00)
[2020-08-04] MEDS ORDERED: ZOLPIDEM TARTRATE 5 MG TAB PO PRN (21:00)
[2020-08-05] VITALS: BP 123/61
[2020-08-05] MEDS: HYDROCODONE/APAP 5MG-325MG TAB PO PRN ×3 (02:23→14:26)
[2020-08-05] MEDS: SODIUM CHLORIDE 0.9% 1000ML 1,000 ML IV SCH (03:25)
[2020-08-05 04:00] VITALS: BP 124/67
[2020-08-05 06:01] LABS: HEMATOCRIT 28.8 % (38.2-49.6); HEMOGLOBIN 9.3 g/dL (14.0-18.0)
[2020-08-05 08:19] VITALS: BP 123/65
[2020-08-05 08:45] VITALS: BP 123/65
[2020-08-05] MEDS: CELECOXIB 200 MG CAP PO SCH (08:53)
[2020-08-05] MEDS: VANCOMYCIN 1GM/NS 250 ML 250 ML IV SCH (08:53)
[2020-08-05] MEDS: ASPIRIN 325 MG TAB PO SCH (08:54)
[2020-08-05] MEDS ORDERED: GLUCOSAMINE SULFATE 750 MG PO SCH (09:00)
[2020-08-05] MEDS ORDERED: NON-FORMULARY MEDICATION (Losartan/Hydrochlorothiazide (Losartan-Hctz 100-25 Mg Tab) 1 TAB PO SCH (09:00)
[2020-08-05] MEDS ORDERED: CHOLECALCIFEROL PO SCH (09:00)
[2020-08-05] MEDS ORDERED: CARVEDILOL 12.5 MG TAB PO SCH (09:00)
[2020-08-05] MEDS ORDERED: HYDROCHLOROTHIAZIDE 25 MG TAB PO SCH (09:00)
[2020-08-05] MEDS ORDERED: POTASSIUM CHLORIDE 10MEQ EA PO SCH (09:00)
[2020-08-05] MEDS ORDERED: UBIDECARENONE 400 MG PO SCH (09:00)
[2020-08-05] MEDS ORDERED: LOSARTAN POTASSIUM 100 MG TAB PO SCH (09:00)
[2020-08-05] MEDS ORDERED: KRILL OIL 1000 MG PO SCH (09:00)
[2020-08-05] MEDS ORDERED: ASPIRIN 81 MG CHEW TAB PO SCH (09:00)
[2020-08-05] MEDS ORDERED: CHOLECALCIFEROL 1,000 UNIT TAB PO SCH (09:00)
[2020-08-05 11:51] VITALS: BP 124/62
[2020-08-05] MEDS ORDERED: DOXYCYCLINE HY100 MG PO (13:26)
[2020-08-05] MEDS ORDERED: ONDANSETRON HCL 4 MG ORAL DISINTEGRATING TAB PO PRN (14:00)
== END 2020-08-05 15:48 | disposition home or self-care (01) | DRG 468 ==
LOC: OR 08:49 → PACU V 12:12 → MED/SURG 15:27
PROVIDERS: ADMIT Specialist; ATTEND Specialist
PROC: 0SRC0J9 Replacement of Right Knee Joint with Synthetic Substitute, Cemented, Open Approach (ICD-10-PCS; 2020-08-04)
PROC: 3E0T3BZ Introduction of Anesthetic Agent into Peripheral Nerves and Plexi, Percutaneous Approach (ICD-10-PCS; 2020-08-04)
PROC: 0SPC0JZ Removal of Synthetic Substitute from Right Knee Joint, Open Approach (ICD-10-PCS; principal; 2020-08-04 10:30)
DX: Z47.32 Aftercare following explantation of hip joint prosthesis (principal); T84.53XD Infection and inflammatory reaction due to internal right knee prosthesis, subsequent encounter; M17.0 Bilateral primary osteoarthritis of knee; Z96.653 Presence of artificial knee joint, bilateral; Z20.828 Contact with and (suspected) exposure to other viral communicable diseases; I10 Essential (primary) hypertension; R78.5 Finding of other psychotropic drug in blood; E66.9 Obesity, unspecified; Z68.39 Body mass index [BMI] 39.0-39.9, adult
CPT/HCPCS: 36415; 85014; 85018; 86850; 86900; 87071; 87075; 87205; 97139; C1713; J0171; J1100; J1885; J2001; J2250; J2405; J2795; J3010; J3370; J7030; J7040; U0002

== ENCOUNTER 2020-09-25 12:59 | Outpatient (RCR) | payer OTHER ==
[~2020-09-25 12:59] MED LIST changes: -ROPIVACAINE 246.25 MG, EPINEPHRINE HCL 1:1000 1ML 0.5 MG, CLONIDINE HCL 0.08 MG, KETORO... INJ ONE; -SODIUM CHLORIDE 0.9% 500ML 500 ML ONE; -TRANEXAMIC ACID 1,000 MG/10 ML ML ONE; -VANCOMYCIN HCL 1,000 MG ONE
== END 2020-09-27 ==
LOC: PT 12:59
PROVIDERS: ATTEND Specialist
DX: Z96.651 Presence of right artificial knee joint (principal)

== ENCOUNTER 2020-10-21 09:59 | Outpatient (RCR) | payer OTHER | END 2020-10-25 | LOC: PT 09:59 | PROVIDERS: ATTEND Specialist | DX: Z96.651 Presence of right artificial knee joint (principal); Z47.1 Aftercare following joint replacement surgery; M25.561 Pain in right knee; M25.571 Pain in right ankle and joints of right foot; R26.2 Difficulty in walking, not elsewhere classified | CPT/HCPCS: 97139 ==

== ENCOUNTER 2020-11-06 13:54 | Outpatient (RCR) | payer OTHER | END 2020-11-25 | LOC: PT 13:54 | PROVIDERS: ATTEND Specialist | DX: Z96.651 Presence of right artificial knee joint (principal); Z47.1 Aftercare following joint replacement surgery; M25.561 Pain in right knee; M25.661 Stiffness of right knee, not elsewhere classified; M62.81 Muscle weakness (generalized); R26.2 Difficulty in walking, not elsewhere classified; M25.571 Pain in right ankle and joints of right foot ==

== ENCOUNTER 2021-01-11 06:34 | Inpatient (IN) | payer OTHER, MEDICARE ==
[2021-01-08 11:50] LABS: BASOPHILS # (AUTO) 0.1 (0.0-0.1); BASOPHILS % 0.7 % (0.0-1.0); EOSINOPHILS # (AUTO) 0.2 (0.0-0.4); EOSINOPHILS % 3.1 % (0.0-6.0); HEMATOCRIT 31.9 % (38.2-49.6); HEMOGLOBIN 9.7 g/dL (14.0-18.0); LYMPHOCYTES # (AUTO) 1.4 (1.0-3.2); LYMPHOCYTES % 18.6 % (18.0-39.1); MEAN CORPUSCULAR HEMOGLOBIN 25.5 pg (28-32); MEAN CORPUSCULAR HGB CONC 30.4 g/dL (31-35); MEAN CORPUSCULAR VOLUME 83.9 fL (81-99); MONOCYTES # (AUTO) 0.7 (0.2-0.8); MONOCYTES % 9.3 % (4.4-11.3); NEUTROPHILS # (AUTO) 5.2 (2.1-6.9); NEUTROPHILS % 67.6 % (38.7-80.0); PLATELET COUNT 278 x10e3/uL (140-360); RED CELL DISTRIBUTION WIDTH 14.8 % (11.7-14.4)
[2021-01-08 12:08] LABS: BLOOD UREA NITROGEN 18 mg/dL (7-26); BUN/CREATININE RATIO 15 (6-25); CALCIUM 9.5 mg/dL (8.4-10.2); CARBON DIOXIDE 28 mmol/L (22-29); CHLORIDE 101 mmol/L (98-107); CREATININE, SERUM 1.18 mg/dL (0.72-1.25); EST GLOMERULAR FILTRATION RATE > 60 ML/MIN (60-); GLUCOSE 130 mg/dL (74-118); SODIUM 138 mmol/L (136-145)
[~2021-01-11] VITALS: Ht 162.6 cm; Wt 103.9 kg
[~2021-01-11 06:34] MED LIST changes: +CELEBREX200 MG PO; +FEROSUL325 MG PO; +VANCOMYCIN 1GM/NS 250 ML 250 ML ONE
[2021-01-11] MEDS ORDERED: DEXAMETHASONE SOD PHOS 10 MG/1 ML VIAL ONE (07:04)
[2021-01-11] MEDS ORDERED: CELECOXIB 200 MG CAP ONE (07:04)
[2021-01-11] MEDS ORDERED: GABAPENTIN 300 MG CAP ONE (07:04)
[2021-01-11] MEDS ORDERED: ROPIVACAINE 246.25 MG, EPINEPHRINE HCL 1:1000 1ML 0.5 MG, CLONIDINE HCL 0.08 MG, KETORO... INJ ONE ×5 (08:00)
[2021-01-11] MEDS ORDERED: Vancomycin IV 500 MG ONE (09:06)
[2021-01-11] MEDS ORDERED: SODIUM CHLORIDE 0.9% 500ML 500 ML ONE (09:06)
[2021-01-11] MEDS ORDERED: TRANEXAMIC ACID 1,000 MG/10 ML ML ONE (09:06)
[2021-01-11] MEDS ORDERED: ACETAMINOPHEN 1000 MG/100 ML 100 ML IV ONE (09:25)
[2021-01-11] MEDS ORDERED: LIDOCAINE HCL 2% LOCAL INJ 5 ML SDV VIAL INJ ONE (12:29)
[2021-01-11] MEDS ORDERED: GLYCOPYRROLATE INJ 0.2 MG/ML VIAL ONE (12:29)
[2021-01-11] MEDS ORDERED: PROPOFOL IV EMULSION 10 MG/ML 20 ML VIAL ONE (12:29)
[2021-01-11] MEDS ORDERED: POVIDONE IODINE 0.05% 0.05 % ML PO ONE (12:29)
[2021-01-11] MEDS ORDERED: NEOSTIGMINE 1 MG/ML 10ML VIAL ONE (12:29)
[2021-01-11] MEDS ORDERED: ONDANSETRON HCL INJ 2MG/ML 2ML 2 MG/ML VIAL ONE (12:29)
[2021-01-11] MEDS ORDERED: SEVOFLURANE INHAL SOLN 250 ML PEN BTL ONE (12:29)
[2021-01-11] MEDS ORDERED: EPHEDRINE SULFATE INJ 50 MG/ML VIAL ONE (12:29)
[2021-01-11] MEDS ORDERED: ROCURONIUM BROMIDE 10 MG/ML 5ML VIAL IV ONE (12:29)
[2021-01-11] MEDS ORDERED: HYDROCODONE/APAP 5MG-325MG TAB PO PRN (13:15)
[2021-01-11] MEDS ORDERED: DOCUSATE SODIUM 100 MG CAP PO PRN (13:15)
[2021-01-11] MEDS ORDERED: DIPHENHYDRAMINE HCL INJ 50 MG/ML VIAL IV PRN (13:15)
[2021-01-11] MEDS ORDERED: ONDANSETRON HCL INJ 2MG/ML 2ML 2 MG/ML VIAL IV PRN (13:15)
[2021-01-11] MEDS: SODIUM CHLORIDE 0.9% 1000ML 1,000 ML IV SCH ×2 (13:15→23:15)
[2021-01-11] MEDS ORDERED: ACETAMINOPHEN 650 MG SUPP PR PRN (13:15)
[2021-01-11] MEDS ORDERED: ROPIVACAINE 0.5% 5 MG/ML 30 ML SDV ONE (13:28)
[2021-01-11] MEDS ORDERED: FENTANYL CITRATE/PF 100MCG/2 ML INJ ONE ×2 (14:30→19:17)
[2021-01-11 15:20] VITALS: BP 97/58
[2021-01-11 16:00] VITALS: BP 97/58
[2021-01-11 17:00] VITALS: BP 97/58
[2021-01-11] MEDS ORDERED: ACETAMINOPHEN 1000 MG/100 ML IV PRN (17:00)
[2021-01-11 17:05] LABS: BASOPHILS % 0.2 % (0.0-1.0); HEMATOCRIT 32.1 % (38.2-49.6); HEMOGLOBIN 9.8 g/dL (14.0-18.0); LYMPHOCYTES # (AUTO) 0.9 (1.0-3.2); LYMPHOCYTES % 7.5 % (18.0-39.1); MEAN CORPUSCULAR HEMOGLOBIN 25.7 pg (28-32); MEAN CORPUSCULAR HGB CONC 30.5 g/dL (31-35); MONOCYTES # (AUTO) 0.4 (0.2-0.8); MONOCYTES % 2.9 % (4.4-11.3); NEUTROPHILS # (AUTO) 10.9 (2.1-6.9); NEUTROPHILS % 88.8 % (38.7-80.0); PLATELET COUNT 247 x10e3/uL (140-360); RED BLOOD COUNT 3.82 x10e6/uL (4.3-5.7); RED CELL DISTRIBUTION WIDTH 15.2 % (11.7-14.4)
[2021-01-11 17:30] LABS: ANION GAP 12.8 mmol/L (8-16); CREATININE, SERUM 1.4 mg/dL (0.72-1.25); POTASSIUM 4.8 mmol/L (3.5-5.1)
[2021-01-11] MEDS ORDERED: CEFTRIAXONE 1 GM VIAL IV SCH (18:15)
[2021-01-11] MEDS ORDERED: MIDAZOLAM HCL 2 MG/2 ML VIAL ONE (19:17)
[2021-01-11] MEDS: CELECOXIB 100 MG CAP PO SCH (19:42)
[2021-01-11] MEDS: ASPIRIN 325 MG TAB PO SCH (19:42)
[2021-01-11 19:45] VITALS: BP 97/58
[2021-01-11] MEDS: KETOROLAC TROMETHAMINE 30 MG/ML VIAL IV PRN (19:50)
[2021-01-11] MEDS: HYDROCODONE/APAP 7.5MG-325MG 1 EA TAB PO PRN ×2 (19:50→20:30)
[2021-01-11] MEDS: CEFTRIAXONE 1 GM in SODIUM CHLORIDE 0.9% 50ML 50 ML IV SCH (19:50)
[2021-01-11 21:00] VITALS: BP_SYST 123; BP_SYST 98; BP_DIAS 58; BP_DIAS 75
[2021-01-11] MEDS ORDERED: ZOLPIDEM TARTRATE 5 MG TAB PO PRN (21:00)
[2021-01-11 21:46] VITALS: BP 123/75
[2021-01-11] MEDS: VANCOMYCIN 1GM/NS 250 ML 250 ML IV SCH (22:00)
[2021-01-12] VITALS (7 sets, daily range): BP systolic 105–128; BP diastolic 67–77
[2021-01-12] MEDS: HYDROCODONE/APAP 7.5MG-325MG 1 EA TAB PO PRN ×6 (01:17→21:30)
[2021-01-12 05:29] LABS: BASOPHILS % 0.2 % (0.0-1.0); HEMATOCRIT 28.5 % (38.2-49.6); HEMOGLOBIN 8.8 g/dL (14.0-18.0); LYMPHOCYTES % 7.6 % (18.0-39.1); MEAN CORPUSCULAR HEMOGLOBIN 25.7 pg (28-32); MEAN CORPUSCULAR HGB CONC 30.9 g/dL (31-35); MEAN CORPUSCULAR VOLUME 83.1 fL (81-99); MONOCYTES % 7.8 % (4.4-11.3); NEUTROPHILS # (AUTO) 10.5 (2.1-6.9); NEUTROPHILS % 83.8 % (38.7-80.0); PLATELET COUNT 257 x10e3/uL (140-360); RED BLOOD COUNT 3.43 x10e6/uL (4.3-5.7)
[2021-01-12 05:52] LABS: ANION GAP 11.1 mmol/L (8-16); CREATININE, SERUM 1.29 mg/dL (0.72-1.25); POTASSIUM 4.1 mmol/L (3.5-5.1)
[2021-01-12] MEDS: CEFTRIAXONE 1 GM in SODIUM CHLORIDE 0.9% 50ML 50 ML IV SCH ×2 (07:45→19:36)
[2021-01-12] MEDS: ASPIRIN 325 MG TAB PO SCH ×2 (09:04→19:11)
[2021-01-12] MEDS: CELECOXIB 100 MG CAP PO SCH ×2 (09:04→19:11)
[2021-01-12] MEDS: SODIUM CHLORIDE 0.9% 1000ML 1,000 ML IV SCH ×2 (09:15→19:15)
[2021-01-12] MEDS: VANCOMYCIN 1GM/NS 250 ML 250 ML IV SCH ×2 (10:00→22:49)
[2021-01-12] MEDS ORDERED: VANCOMYCIN 1GM/NS 250 ML 250 ML IV SCH (16:00)
[2021-01-12] MEDS: CARVEDILOL 12.5 MG TAB PO SCH (19:12)
[2021-01-12] MEDS: DOXAZOSIN MESYLATE 2 MG TAB PO SCH (21:30)
[2021-01-12] MEDS: AMLODIPINE BESYLATE 10 MG TAB PO SCH (21:30)
[2021-01-12] MEDS: SIMVASTATIN 20 MG TAB PO SCH (21:30)
[2021-01-13] VITALS (8 sets, daily range): BP systolic 104–132; BP diastolic 60–80
[2021-01-13] MEDS: HYDROCODONE/APAP 7.5MG-325MG 1 EA TAB PO PRN ×2 (01:30→05:40)
[2021-01-13] MEDS: SODIUM CHLORIDE 0.9% 1000ML 1,000 ML IV SCH (05:15)
[2021-01-13 05:35] LABS: BASOPHILS # (AUTO) 0.1 (0.0-0.1); BASOPHILS % 0.7 % (0.0-1.0); EOSINOPHILS # (AUTO) 0.3 (0.0-0.4); EOSINOPHILS % 3.9 % (0.0-6.0); HEMATOCRIT 27.2 % (38.2-49.6); HEMOGLOBIN 8.3 g/dL (14.0-18.0); LYMPHOCYTES # (AUTO) 1.3 (1.0-3.2); LYMPHOCYTES % 18.7 % (18.0-39.1); MEAN CORPUSCULAR HEMOGLOBIN 25.5 pg (28-32); MEAN CORPUSCULAR HGB CONC 30.5 g/dL (31-35); MEAN CORPUSCULAR VOLUME 83.4 fL (81-99); MONOCYTES # (AUTO) 0.6 (0.2-0.8); MONOCYTES % 9.4 % (4.4-11.3); NEUTROPHILS # (AUTO) 4.6 (2.1-6.9); NEUTROPHILS % 66.7 % (38.7-80.0); PLATELET COUNT 230 x10e3/uL (140-360); RED BLOOD COUNT 3.26 x10e6/uL (4.3-5.7); RED CELL DISTRIBUTION WIDTH 15.1 % (11.7-14.4)
[2021-01-13 05:51] LABS: ANION GAP 10.9 mmol/L (8-16); BLOOD UREA NITROGEN 25 mg/dL (7-26); BUN/CREATININE RATIO 22 (6-25); CALCIUM 7.9 mg/dL (8.4-10.2); CARBON DIOXIDE 26 mmol/L (22-29); CHLORIDE 101 mmol/L (98-107); CREATININE, SERUM 1.15 mg/dL (0.72-1.25); EST GLOMERULAR FILTRATION RATE > 60 ML/MIN (60-); GLUCOSE 116 mg/dL (74-118); POTASSIUM 3.9 mmol/L (3.5-5.1); SODIUM 134 mmol/L (136-145)
[2021-01-13] MEDS ORDERED: CHOLECALCIFEROL PO SCH (09:00)
[2021-01-13] MEDS ORDERED: NON-FORMULARY MEDICATION (Losartan/Hydrochlorothiazide (Losartan-Hctz 100-25 Mg Tab) 1 TAB PO SCH (09:00)
[2021-01-13] MEDS: ASPIRIN 325 MG TAB PO SCH ×2 (09:44→17:13)
[2021-01-13] MEDS: CEFTRIAXONE 1 GM in SODIUM CHLORIDE 0.9% 50ML 50 ML IV SCH (09:44)
[2021-01-13] MEDS: CELECOXIB 100 MG CAP PO SCH ×2 (09:44→17:13)
[2021-01-13] MEDS: CARVEDILOL 12.5 MG TAB PO SCH ×2 (09:44→17:13)
[2021-01-13] MEDS: LOSARTAN POTASSIUM 100 MG TAB PO SCH (09:44)
[2021-01-13] MEDS: FERROUS SULFATE 325 MG TAB PO SCH (09:45)
[2021-01-13] MEDS: HYDROCHLOROTHIAZIDE 25 MG TAB PO SCH (09:45)
[2021-01-13] MEDS ORDERED: ONDANSETRON HCL 4 MG ORAL DISINTEGRATING TAB PO PRN (09:45)
[2021-01-13] MEDS: CHOLECALCIFEROL 1,000 UNIT TAB PO SCH (09:45)
[2021-01-13] MEDS: VANCOMYCIN 1GM/NS 250 ML 250 ML IV SCH ×2 (09:45→21:22)
[2021-01-13] MEDS ORDERED: BISACODYL 10 MG SUPP PR ONE (10:55)
[2021-01-13] MEDS: POLYETHYLENE GLYCOL 3350 17 GM PACK PO SCH (17:00)
[2021-01-13] MEDS: DOXAZOSIN MESYLATE 2 MG TAB PO SCH (21:22)
[2021-01-13] MEDS: SIMVASTATIN 20 MG TAB PO SCH (21:22)
[2021-01-13] MEDS: AMLODIPINE BESYLATE 10 MG TAB PO SCH (21:22)
[2021-01-14 01:40] VITALS: BP 105/48
[2021-01-14 05:44] VITALS: BP 160/70
[2021-01-14] MEDS: ASPIRIN 325 MG TAB PO SCH ×2 (08:14→16:26)
[2021-01-14] MEDS: CHOLECALCIFEROL 1,000 UNIT TAB PO SCH (08:14)
[2021-01-14] MEDS: FERROUS SULFATE 325 MG TAB PO SCH (08:14)
[2021-01-14] MEDS: CELECOXIB 100 MG CAP PO SCH ×2 (08:14→16:26)
[2021-01-14] MEDS: HYDROCHLOROTHIAZIDE 25 MG TAB PO SCH (08:14)
[2021-01-14] MEDS: POLYETHYLENE GLYCOL 3350 17 GM PACK PO SCH ×2 (08:14→16:26)
[2021-01-14] MEDS: LOSARTAN POTASSIUM 100 MG TAB PO SCH (08:15)
[2021-01-14] MEDS: CARVEDILOL 12.5 MG TAB PO SCH ×2 (08:15→16:26)
[2021-01-14 08:16] VITALS: BP 138/66
[2021-01-14 08:56] VITALS: BP 138/66
[2021-01-14] MEDS: VANCOMYCIN 1GM/NS 250 ML 250 ML IV SCH (11:09)
[2021-01-14] MEDS: HYDROCODONE/APAP 7.5MG-325MG 1 EA TAB PO PRN (11:39)
[2021-01-14 12:05] VITALS: BP 123/63
[2021-01-14 16:20] VITALS: BP 126/59
[2021-01-14] MEDS: KETOROLAC TROMETHAMINE 30 MG/ML VIAL IV PRN (18:32)
[2021-01-15] MEDS ORDERED: VANCOMYCIN 300 ML IV SCH (10:00)
== END 2021-01-14 19:02 | DRG 467 ==
LOC: OR 06:34 → PACU V 13:05 → MED/SURG3 15:23
PROVIDERS: ADMIT Specialist; ATTEND Specialist
PROC: 02HV33Z Insertion of Infusion Device into Superior Vena Cava, Percutaneous Approach (ICD-10-PCS; 2021-01-11)
PROC: 0SPC0JZ Removal of Synthetic Substitute from Right Knee Joint, Open Approach (ICD-10-PCS; principal; 2021-01-12)
PROC: 0SRC0EZ Replacement of Right Knee Joint with Articulating Spacer, Open Approach (ICD-10-PCS; 2021-01-12)
PROC: 0SPD0JZ Removal of Synthetic Substitute from Left Knee Joint, Open Approach (ICD-10-PCS; 2021-01-12)
PROC: 0SRD0EZ Replacement of Left Knee Joint with Articulating Spacer, Open Approach (ICD-10-PCS; 2021-01-12)
PROC: 0SBD0ZZ Excision of Left Knee Joint, Open Approach (ICD-10-PCS; 2021-01-12)
PROC: 0SBC0ZZ Excision of Right Knee Joint, Open Approach (ICD-10-PCS; 2021-01-12)
DX: T84.54XA Infection and inflammatory reaction due to internal left knee prosthesis, initial encounter (principal); Z68.41 Body mass index [BMI] 40.0-44.9, adult; M00.062 Staphylococcal arthritis, left knee; M00.061 Staphylococcal arthritis, right knee; Y79.2 Prosthetic and other implants, materials and accessory orthopedic devices associated with adverse incidents; E66.01 Morbid (severe) obesity due to excess calories; B95.62 Methicillin resistant Staphylococcus aureus infection as the cause of diseases classified elsewhere; Z20.822 Contact with and (suspected) exposure to COVID-19; I10 Essential (primary) hypertension; T84.53XA Infection and inflammatory reaction due to internal right knee prosthesis, initial encounter
CPT/HCPCS: 36415; 36569; 71045; 80048; 80202; 85025; 86850; 86900; 86920; 87071; 87075; 87102; 87116; 87186; 87205; 87206; 93005; 96361; 97139; C1713; C1776; J0171; J0696; J1100; J1885; J2001; J2250; J2405; J2710; J2795; J3010; J3370; J7030; J7040; U0002

== ENCOUNTER → 2021-11-25 | Outpatient (RCR) | payer MEDICARE, OTHER ==
[~2021-11-25] MED LIST changes: -VANCOMYCIN 1GM/NS 250 ML 250 ML ONE
== END ==
LOC: PT 11-17 15:17
PROVIDERS: ATTEND Nurse Practitioner Family
DX: Z96.651 Presence of right artificial knee joint (principal); T84.53XD Infection and inflammatory reaction due to internal right knee prosthesis, subsequent encounter

== ENCOUNTER 2021-12-21 10:00 | Outpatient (RCR) | payer MEDICARE, OTHER | END 2021-12-25 | LOC: PT 10:00 | PROVIDERS: ATTEND Nurse Practitioner Family | DX: Z96.651 Presence of right artificial knee joint (principal); T84.53XD Infection and inflammatory reaction due to internal right knee prosthesis, subsequent encounter ==

== ENCOUNTER 2022-01-13 09:59 | Outpatient (RCR) | payer MEDICARE, OTHER | END 2022-01-25 | LOC: PT 09:59 | PROVIDERS: ATTEND Nurse Practitioner Family | DX: Z96.651 Presence of right artificial knee joint (principal); T84.53XD Infection and inflammatory reaction due to internal right knee prosthesis, subsequent encounter ==

== ENCOUNTER 2022-05-26 14:50 | Outpatient (RCR) | payer MEDICARE | END 2022-05-27 | LOC: PT 14:50 | PROVIDERS: ATTEND Orthopaedic Surgery | DX: Z96.652 Presence of left artificial knee joint (principal) ==

== ENCOUNTER 2022-06-23 13:00 | Outpatient (RCR) | payer MEDICARE | END 2022-06-27 | LOC: PT 13:00 | PROVIDERS: ATTEND Orthopaedic Surgery | DX: Z96.652 Presence of left artificial knee joint (principal) ==

== ENCOUNTER 2022-06-30 13:00 | Outpatient (RCR) | payer MEDICARE | END 2022-07-27 | LOC: PT 13:00 | PROVIDERS: ATTEND Orthopaedic Surgery | DX: Z96.652 Presence of left artificial knee joint (principal) ==